=== PATIENT | female | born 1945 | race Caucasian/White ===

== ENCOUNTER 2018-08-12 15:58 | Observation (INO) | payer MEDICARE, OTHER, SELFPAY ==
[2018-08-12] VITALS (26 sets, daily range): BP systolic 127–160; BP diastolic 65–92; PULSE 66–84; RESP 7–23; TEMP 36.3–36.5; O2SAT 87–99
--- NOTE | 2018-08-12 16:22 | DI.CT_ITS ---
SYMPTOMS/DIAGNOSIS: EPIGASTRIC PAIN, BILATERAL BACK PAIN CT SCAN OF THE ABDOMEN AND PELVIS: CT scan of the abdomen and pelvis was performed following the uneventful administration of intravenous contrast material. Comparison CT scan of the chest is 03/25/08. No acute findings are seen in the lung bases. The liver is normal in size. There are several hypodense lesions in the liver. They are too small for further characterization but likely reflect cysts. No suspicious hepatic masses are seen. The portal and superior mesenteric veins are unremarkable. There are stones seen within the gallbladder. There does appear to be mild gallbladder wall thickening and a question of haziness in the pericholecystic region. No biliary ductal dilatation is seen. If there are concerns for acute cholecystitis, ultrasound may be considered for further evaluation. The pancreas is unremarkable, as are the spleen and adrenal glands. The kidneys show normal and symmetric enhancement. The right kidney shows no evidence of nephrolithiasis or hydronephrosis. In the left kidney, there are two adjacent cysts seen, the largest measuring 4.9 cm. There are parapelvic cysts also present. No nephrolithiasis or hydronephrosis is appreciated. The urinary bladder is intact. There does appear to be diffuse thickening of the wall of the urinary bladder. This may be due to underdistention. The possibility of an infectious process cannot be excluded. No intraluminal masses are present. The reproductive organs are visualized. There is a 2.8 cm complex right adnexal cyst, likely ovarian. Given the patient 's age, followup is recommended. This may include ultrasound. There is atherosclerosis of the abdominal aorta without evidence of abdominal aortic aneurysm. 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 No significant abdominal or pelvic adenopathy, ascites or pneumoperitoneum is present. There is diverticulosis seen in the colon, but no evidence of acute diverticulitis. There is a moderate amount of retained stool present. There is a normal air-filled appendix in the right lower quadrant. There is a question of mild wall thickening and loops of small bowel in the left abdomen. Enteritis cannot be excluded. There does appear to be a mild swirling of the mesenteric vessels in the lower abdomen and pelvis. The possibility of an internal hernia or volvulus cannot be excluded. Please correlate clinically. There are degenerative changes seen in the spine. No acute fractures appreciated. IMPRESSION: 1. Cholelithiasis within a distended gallbladder and questionable findings involving the wall and pericholecystic soft tissues. Acute cholecystitis cannot be excluded. Followup may be considered with an ultrasound. 2. Question of mild wall thickening and loops of small bowel in the left abdomen. A mild enteritis cannot be excluded. 3. Swirling pattern in the lower abdomen and pelvis. Differential considerations include internal hernia or possibly early volvulus. Please correlate clinically. 4. Complex cystic structure in the right ovary. Given the patient's age , clinical followup should be considered. Ultrasound or MRI should be considered.
--- NOTE | 2018-08-12 16:28 | ED.GENADUL_ITS ---
Discharge Plan Disposition Patient Disposition: [facility] INPATIENT Condition: Stable Discharge Details Chief Complaint: Abd Prob Clinical Impression: Abdominal pain Primary Care Provider: Sole Adkins ED Provider: Eduardo Guerrero Home Meds and New Rx's Prescriptions: No Action L CARNITINE 1,000 mg PO DAILY RF: 0 green tea leaf extract 250 MG capsule 250 mg PO DAILY RF: 0 multivitamin [Daily Multi-Vitamin] 1 EACH tablet 1 ea PO DAILY RF: 0 ascorbic acid (vitamin C) [Vitamin C] 1,000 MG tablet 1,000 mg PO DAILY RF: 0 venlafaxine [Effexor XR] 37.5 MG capsule,extended release 24hr 37.5 mg PO DAILY Qty: 90 RF: 3 risedronate [Actonel] 35 MG tablet 35 mg PO weekly Qty: 12 RF: 4 levothyroxine 50 MCG tablet 50 mcg PO DAILY Qty: 90 RF: 4 tetracycline 250 MG capsule 250 mg PO DAILY RF: 0 zinc gluconate 50 MG tablet 50 mg PO DAILY RF: 0 pycnogenol 30 mg PO DAILY RF: 0 lysine [L-Lysine] 500 MG capsule 500 mg PO DAILY RF: 0 aspirin [Aspir-81] 81 MG tablet,delayed release (DR/EC) 1 tab PO DAILY RF: 0 flaxseed oil 1,000 MG capsule 1 cap DAILY RF: 0 black cohosh [Remeprin] 20 MG tablet 20 mg PO HS RF: 0 diphenhydramine-acetaminophen [Tylenol PM Extra Strength] 1 EACH tablet 1 tab PO PRN PRNRF: 0 vitamin E 400 UNIT capsule 400 unit PO HS RF: 0 cholecalciferol (vitamin D3) 1,000 UNIT capsule 1,000 unit PO DAILY RF: 0 omega-3 fatty acids-fish oil [Fish Oil] 1 EACH capsule 2 cap DAILY RF: 0 calcium carbonate-vitamin D3 [Calcium 600 + D(3)] 1 EACH tablet 1 ea PO DAILY RF: 0 glucosamine brown 2KCl-chondroit [Glucosamine Sulf-Chondroitin] 1 EACH capsule 1 cap HS RF: 0 coenzyme Q10 [H2Q CoQ10] 75 GM powder 75 gm PO DAILY RF: 0 vit A and D3 in cod liver oil [cod liver oil] 1 EACH capsule 1 cap DAILY RF: 0 Medical Decision Making 72-year-old female presents from home with complaint of epigastric pain that radiates to her flank and also with associated dysuria. She is afebrile with normal vital signs, her exam reveals epigastric tenderness as well as right lower abdomen discomfort on exam. Patient differential diagnosis is broad including pancreatitis, ileus, urinary tract infection, gastritis, occult SD. She is placed on a cafeteria monitor, IV access established, referred for laboratory testing with urinalysis as well as chest x-ray and CT scan of the abdomen and pelvis. His diagnostic studies reveal a white blood cell count of 6, reassuring chemistries with a negative troponin and a lipase of 299. Imaging studies do note some gallbladder wall thickening and questionable pericholecystic fluid. There is note of swirling of the mesentery with haziness of the associated fat, concern for early or partial volvulus/internal hernia. Finally there is complex cystic structure of the right ovary. She will require deferred right upper quadrant ultrasound, but her labs do not support acute cholecystitis. I discussed the case with on-call surgery, Dr. Danielle who agrees with overnight observation for developing process such as small bowel obstruction. I have added a lactic acid which is normal at 0.6. Lab Data Lab results reviewed: Yes I reviewed the patient's lab results. Laboratory Tests Range/Units 08/12/18 08/12/18 15:50 15:50 WBC (4.4-10.8) k/cumm 6.50 RBC (4.00-5.20) m/cumm 4.57 Hgb (12.0-15.5) g/dL 14.7 Hct (36.0-46.0) % 43.4 MCV (80-95) fL 95.0 MCH (27.0-33.0) pg 32.2 MCHC (32.0-36.0) g/dL 33.9 RDW (11.7-14.6) % 12.8 Plt Count (130-400) x1000/uL 207 MPV (8.0-11.0) fL 10.9 Immature Gran % 0.2 Neutrophils % 67.3 Lymphocytes % 22.0 Monocytes % 9.1 Eosinophils % 1.2 Basophils % 0.2 Absolute Neutrophils (1.2-6.7) k/cumm 4.38 Absolute Lymphocytes (1.2-3.4) k/cumm 1.43 Absolute Monocytes (0.11-0.7) k/cumm 0.59 Absolute Eosinophils (0.0-0.7) k/cumm 0.08 Absolute Basophils (0.0-0.2) k/cumm 0.01 Sodium (136-145) mmol/L 138 Potassium (3.5-5.1) mmol/L 3.6 Chloride (98-107) mmol/L 100 Carbon Dioxide (21.0-32.0) mmol/L 27.2 Anion Gap (3-11) mmol/L 10.8 BUN (7-18) mg/dL 21 H Creatinine (0.55-1.02) mg/dL 0.61 Estimated GFR/1.73 m2 (mL/min/1.73m2) >= 60.00 Glucose (70-100) mg/dL 94 Calcium (8.5-10.1) mg/dL 9.0 Magnesium (1.8-2.4) mg/dL 1.7 L Total Bilirubin (0.2-1.0) mg/dL 0.4 AST (15-37) U/L 22 ALT (12-78) U/L 35 Alkaline Phosphatase (46-116) U/L 78 Troponin I (0.00-0.06) ng/mL < 0.02 Total Protein (6.4-8.2) g/dL 6.8 Albumin (3.4-5.0) g/dL 3.6 Lipase (73-393) U/L 299 ECG Data Attestation: I personally reviewed and interpreted this ECG (s) as follows: Interpretation: Normal sinus rhythm, rate of 78, QRS is narrow, no ST segment elevation present HPI General Mode of arrival: ambulatory . Date/Time Provider Initiated Documentation: 08/12/18 16:02 . Limitations to Documentation: no limitations . Information obtained by: patient . History of Present Illness 72 year old F presents to the emergency department with the chief complaint of Abdominal pain and multiple complaints, described as moderate, Quality is described as aching, and is localized to the abdomen. Patient flank. Patient started experiencing this day(s) and it has been intermittent. No relieving factors improve symptom(s), No exacerbating factors reported . HPI Narrative: This is a 72-year-old female who presents from home with a number of complaints. Chief of them is at least one weeks of epigastric achy and burning discomfort that radiates at times to her back. It does seem to come and go without significant inciting or ameliorating factors. It is been associated with increased urgency of urination and frequency of urination over the course of the day today. Patient denies any exertional discomfort. She has not had any shortness of breath. She states that she had night sweats but has not documented a fever. She states that she is concerned that a dental infection which occurred early in the year may have recurred. Related Data Home Medications Medication Instructions Recorded Confirmed aspirin [Aspir 81] 1 tab PO DAILY 12/16/12 12/03/15 black cohosh [Remeprin] 20 mg PO HS 12/16/12 12/03/15 calcium carbonate-vitamin D3 1 ea PO DAILY 12/16/12 12/03/15 [Calcium 600 + Vit D 400 Caplet] cholecalciferol (vitamin D3) 1,000 unit PO DAILY 12/16/12 12/03/15 coenzyme Q10 [H2q Coq10] 75 gm PO DAILY 12/16/12 12/03/15 diphenhydramine-acetaminophen 1 tab PO PRN PRN 12/16/12 12/02/15 [Tylenol Pm Ex-Strength Caplet] flaxseed oil 1 cap DAILY 12/16/12 12/03/15 glucosamine brown 2KCl-chondroit 1 cap HS 12/16/12 12/03/15 [Glucosamine & Chondroitin Cap] lysine [l-Lysine] 500 mg PO DAILY 12/16/12 12/03/15 omega-3 fatty acids-fish oil [Fish 2 cap DAILY 12/16/12 12/03/15 Oil 1,000 mg Capsule] vit A and D3 in cod liver oil [Cod 1 cap DAILY 12/16/12 12/03/15 Liver Oil Softgel] vitamin E 400 unit PO HS 12/16/12 12/03/15 L Carnitine 1,000 mg PO DAILY 01/30/15 12/03/15 green tea leaf extract 250 mg PO DAILY 05/11/16 ascorbic acid (vitamin C) [Vitamin 1,000 mg PO DAILY 10/04/17 C] multivitamin [Multi-Vitamin Daily] 1 ea PO DAILY 10/04/17 venlafaxine [Effexor Xr] 37.5 mg PO DAILY #90 tab-cap 10/04/17 levothyroxine 50 mcg PO DAILY #90 tab-cap 11/07/17 risedronate [Actonel] 35 mg PO weekly #12 tab-cap 11/07/17 Pycnogenol 30 mg PO DAILY 11/24/17 tetracycline 250 mg PO DAILY cap 11/24/17 zinc gluconate 50 mg PO DAILY 11/24/17 Previous Rx's Medication Instructions Recorded venlafaxine [Effexor Xr] 37.5 mg PO DAILY #90 tab-cap 10/04/17 levothyroxine 50 mcg PO DAILY #90 tab-cap 11/07/17 risedronate [Actonel] 35 mg PO weekly #12 tab-cap 11/07/17 Allergies Allergy/AdvReac Type Severity Reaction Status Date / Time doxycycline AdvReac Intermediate UPSET Unverified 08/12/18 16:14 STOMACH PROCAINE AdvReac Intermediate TACHYCARDIA Uncoded 08/12/18 16:14 General Stated Complaint: Abd Prob YOBANY: 3 Review of Systems Review of Systems 8 systems reviewed and otherwise neg. PFSH Family History Mother Depression Heart disease Father Essential hypertension Heart disease Hyperlipidemia Sister Essential hypertension Heart disease Sister Substance abuse Depression Brother Essential hypertension Heart disease Grandfather Cerebrovascular accident Grandfather Heart disease Cerebrovascular accident Grandmother Depression Heart disease Cerebrovascular accident Grandmother Heart disease Family History Messer's palsy Skin cancer Osteoporosis Arthritis Kidney stones Kidney disease Thyroid disorder Daughter Substance abuse Diabetes Depression Daughter Substance abuse Diabetes Depression Social History Smoking/Tobacco Use Status: Former Tobacco Use Surgical History Biopsy of breast (~1991) OOPHRECTOMY, U/L REPAIR LEFT PATELLA FRACTURE (12/03/15) Exam Narrative Exam Narrative: GEN: awake, alert, oriented 3. Pleasant, well groomed, interactive. HEAD: Normocephalic, atraumatic ENT: Mucous membranes moist, oropharynx unremarkable, External ear exam unremarkable EYES: PERRL, EOMI NECK: Full ROM, no FISH, no menigismus CHEST/RESP: Nontender, clear to auscultation bilateral, no wheeze/rhonchi/rales CARDIOVASCULAR: RRR, no murmur, rub david. 2+ Rad pulse bilateral ABDOMEN: Tender in the epigastrium as well as RLQ on exam without rebound, no mass. +Bowel sounds EXT: Full ROM, no edema, no rash Neuro: Grossly normal neurologic exam, conversant, interactive. Psych: Speech fluent, thoughts congruent, affect normal Course Vital Signs Temperature 36.3 C L 08/12/18 16:06 Pulse 77 08/12/18 16:06 Respiratory Rate 18 08/12/18 16:06 Blood Pressure 136/87 08/12/18 16:06 Pulse Oximetry 97 08/12/18 16:06 Temperature 36.3 C L 08/12/18 16:06 Pulse 77 08/12/18 16:06 Respiratory Rate 18 08/12/18 16:06 Respiratory Effort 08/12/18 16:10 Blood Pressure 136/87 08/12/18 16:06 Pulse Oximetry 97 08/12/18 16:06 Oxygen Delivery Method Room Air 08/12/18 16:06 Oxygen Flow Rate 0 08/12/18 16:06 Pain Level 5 08/12/18 16:06
[2018-08-12] MEDS: Normal Saline 1,000 ML 125 ML IV ×2 (16:32→21:41)
[2018-08-12 16:41] LABS: Abs Immature Grans 0.01 k/cumm (0.0-0.09); Absolute Basophil Count 0.01 k/cumm (0.0-0.2); Absolute Eosinophil Count 0.08 k/cumm (0.0-0.7); Absolute Lymphocyte Count 1.43 k/cumm (1.2-3.4); Absolute Monocyte Count 0.59 k/cumm (0.11-0.7); Absolute Neutrophil Count 4.38 k/cumm (1.2-6.7); Basophils % 0.2; Eosinophils % 1.2; HCT 43.4 % (36.0-46.0); HGB 14.7 g/dL (12.0-15.5); Immature Grans % 0.2; Mean Corp. HGB Concentration 33.9 g/dL (32.0-36.0); Mean Corpuscular Hemoglobin 32.2 pg (27.0-33.0); Mean Platelet Volume 10.9 fL (8.0-11.0); Monocytes % 9.1; Neutrophils % 67.3; Platelet Count 207 x1000/uL (130-400); RBC 4.57 m/cumm (4.00-5.20); RBC Distribution Width 12.8 % (11.7-14.6)
[2018-08-12 16:48] LABS: ALT 35 U/L (12-78); AST 22 U/L (15-37); Albumin 3.6 g/dL (3.4-5.0); Alkaline Phosphatase 78 U/L (46-116); Anion Gap 10.8 mmol/L (3-11); BUN 21 mg/dL (7-18); Bilirubin, Total 0.4 mg/dL (0.2-1.0); CO2 27.2 mmol/L (21.0-32.0); CREATININE 0.61 mg/dL (0.55-1.02); Chloride 100 mmol/L (98-107); Glucose 94 mg/dL (70-100); Lipase 299 U/L (73-393); Magnesium 1.7 mg/dL (1.8-2.4); Potassium 3.6 mmol/L (3.5-5.1); Sodium 138 mmol/L (136-145); Total Protein 6.8 g/dL (6.4-8.2)
[2018-08-12 16:50] LABS: Troponin I < 0.02 ng/mL (0.00-0.06)
--- NOTE | 2018-08-12 16:53 | DI.RAD_ITS ---
SYMPTOMS/DIAGNOSIS: EPIGASTRIC PAIN CHEST X-RAY, PA AND LATERAL: Comparison is 11/14/10. The heart size and pulmonary vasculature are within normal limits. The lungs are clear and well expanded. No effusions or pneumothoraces are identified. The lungs appear hyperinflated, suggesting underlying COPD. Degenerative changes are seen in the spine. There is a mild compression deformity at T8, not present on the prior examination. IMPRESSION: No acute pulmonary process.
[2018-08-12] MEDS: Omnipaque 350 MG/ML 100 ML BTL IJ (17:20)
--- NOTE | 2018-08-12 17:24 | DI.VRAD_ITS ---
EXAM: XR Chest, 2 Views EXAM DATE/TIME: 08/12/2018 5:17 PM CLINICAL HISTORY: 72 years old, female; Pain; Other: Epigastric pain TECHNIQUE: XR of the chest, 2 views. COMPARISON: No relevant prior studies available. FINDINGS: Lungs: AP portion of the pulmonary parenchyma is obscured secondary to an overlying snap. No consolidation. Pleural space: Unremarkable. No pleural effusion. No pneumothorax. Heart/Mediastinum: Unremarkable. No cardiomegaly. Bones/joints: Skeletal degenerative changes.. IMPRESSION: 1. No focal consolidation or pneumothorax. Dictated and Authenticated by: Clarice Wilkins MD. Ordering:GIANFRANCO FINK MD
--- NOTE | 2018-08-12 17:52 | DI.VRAD_ITS ---
EXAM: CT Abdomen and Pelvis With Intravenous Contrast EXAM DATE/TIME: 08/12/2018 4:25 PM CLINICAL HISTORY: 72 years old, female; Pain; Other: Epigastric pain TECHNIQUE: Axial computed tomography images of the abdomen and pelvis with intravenous contrast. Coronal and sagittal reformatted images were created and reviewed. COMPARISON: No relevant prior studies available. FINDINGS: Lower thorax: Linear atelectasis or scarring at the lung bases. ABDOMEN: Liver: Too small to characterize hypodensity in the liver. 1.4 cm cystic structure in the posterior right hepatic lobe. Series 5 image 9 demonstrates a hypodensity in the medial liver which measures 26 Hounsfield units and therefore does not fulfill the criteria for a simple cyst. Ultrasound or MRI hepatic mass protocol, could be considered. Gallbladder and bile ducts: The gallbladder is prominent in appearance measuring 7.8 cm. It demonstrates gallstones. There appears to be gallbladder wall thickening and some questionable pericholecystic fluid. Findings are worrisome for cholecystitis. Ultrasound could be considered. Pancreas: Normal. No ductal dilation. Spleen: Normal. No splenomegaly. Adrenals: Normal. No mass. Kidneys and ureters: Mild prominence to each intrarenal collecting system. There are cystic structures in the left kidney, the largest of which appears to be septated, 4.2 cm. Followup could be considered. Stomach and bowel: The stomach is fluid-filled. There are areas of wall prominence involving the stomach and duodenum which should be correlated with any concern for gastritis/duodenitis. There are also fluid-filled loops of small bowel. The small bowel of the left hemiabdomen also demonstrates some mild dilation (up to 2.7 cm (series 5 image 42) and wall prominence. There is a mild swirling of the mesentery in the lower abdomen on series 5 image 46 with some haziness to the associated fat. This should be correlated with any concern for early volvulus or internal hernia. Stool throughout the colon which can be seen with constipation. Diverticulosis. There is some wall prominence to the sigmoid colon on series 5 image 55 which may be related to under distention or chronic thickening in the setting of diverticular disease. However, finding should be correlated with any concern for early acute diverticulitis. Appendix: Normal appendix. PELVIS: Bladder: Some wall prominence to the anterior aspect of the urinary bladder. This can be seen with infection or pathology. Reproductive: The uterus is present. There is a 2.7 cm cystic structure in the right ovary which demonstrates a 4 mm calcification. Given the patient's age, cystic ovarian neoplasm is not excluded. Ultrasound would be beneficial. ABDOMEN and PELVIS: Intraperitoneal space: No free air. No free fluid. Bones/joints: Skeletal degenerative changes. Soft tissues: Tiny fat-containing anterior abdominal wall hernia. Vasculature: Vascular calcifications. Series 5 image 17 demonstrates a calcified aneurysm in the left upper quadrant of the abdomen. This may be originating from the splenic artery. Lymph nodes: Normal. No enlarged lymph nodes. IMPRESSION: 1. Constellation of findings discussed above is worrisome for acute cholecystitis. Ultrasound could be considered. 2. Findings in the stomach, duodenum, and small bowel which should be correlated with concern for gastroenteritis. In addition, there is mild dilation of the loops of small bowel in the left hemiabdomen for which an early or partial obstructive process is not excluded. 3. Mild swirling of the mesentery in the lower abdomen with some haziness to the associated fat. This should be correlated with any concern for early/partial volvulus or internal hernia. 4. Wall prominence to the anterior aspect of the urinary bladder. This can be seen with infection or pathology. 5. Complex cystic structure in the right ovary. Given the patient's age, cystic ovarian neoplasm is not excluded. Ultrasound would be beneficial. 6. Hypodensity in the liver which does not fulfill the criteria for a simple cyst. 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 Some wall prominence to the sigmoid colon which can be seen chronically or in the setting of early acute diverticulitis. Other findings as above. Dictated and Authenticated by: Clarice Wilkins MD. Ordering:GIANFRANCO FINK MD
[2018-08-12 18:32] LABS: Lactate-non-spesis 0.6 mmol/L (0.6-1.4)
[2018-08-12 19:04] LABS: Bilirubin Negative (Negative); Blood Trace-lysed (Negative); Clarity Clear; Glucose Negative (Negative); Ketones Negative (Negative); Leukocyte Esterase Negative (Negative); Nitrite Negative (Negative); Specific Gravity <= 1.005 (1.005-1.025); Urobilinogen 0.2 EU/dL (Up TO 0.2); pH 5.5 (5-8)
[2018-08-12 19:34] LABS: Bacteria Negative HPF (Negative); C & S Indicated? No; Casts Negative LPF (Negative); Crystals Negative HPF (Negative); Epithelial Cells Rare HPF (Negative); Mucus Negative (Negative); Other Cells Negative (Negative); RBC 0-2 (0-2); WBC Negative HPF (0-5)
--- NOTE | 2018-08-12 20:37 | W.PM.HP.N ---
Date of service: 08/12/18 Time of Service: 20:37 Assessment and Plan (1) Abdominal pain: Current visit: Yes Status: Acute 72 y/o female with abdominal pain of uncertain etiology. Pain is migratory and variably located by history. She is mildly tender diffusely. Multiple potential etiologies described on CT including gallstones, possible gastroenteritis, possible diverticulitis, possible splenic artery aneurysm, and multiple cystic findings in the liver, left kidney and right ovary. Follow-up imaging with abdominal and pelvic ultrasound ordered. Follow-up labs in am. Bowel rest and IVF overnight. Pain management with Tordaol prn. Discussed plans with patient. She is agreeable. History of Present Illness Chief Complaint: Abdominal pain Narrative: 72 y/o female who presented to the ED with a 4 day history of abdominal pain. Patient notes that she has had milder intermittent episodes over the past several months but her symptoms became more severe over the last 4 days. She notes intermittent pain which feels like a gas bubble in the epigastrium with radiation across the upper abdomen around to the back. She also notes some pain in the lower abdomen. She notes some hot flashes at home but denies fevers or chills. She notes urgency and frequency but denies dysuria or hematuria. She notes occasional nausea in the mornings which she attributes to her thyroid medication and effexor. She denies any nausea or vomiting at this time. She denies diarrhea or constipation. Her last BM was small, brown, and regular appearing this am. She had recurrence of pain during our conversation and indicates that it is in the LLQ with radiation up to the LUQ. WBC, LFTs, lipase, lactate, and U/A unremarkable. Results reviewed. CXR was unremarkable. CT abd/pelvis films and VRADS report reviewed. Multiple findings noted on CT including a prominent, possibly thickened gallbladder with stones and possible pericholecystic fluid, hepatic cyst, left renal cyst, possible gastroenteritis and early diverticulitis, mild small bowel dilation, mild swirling of the mesentery in the lower abdomen with some haziness of the fat, wall prominence of the anterior urinary bladder wall, complex cyst of the right ovary, and a possible calcified splenic artery aneurysm. Incidentally, patient notes that she had a crown placed in October 2017. Her tooth was cracked and became infected underneath the crown with infection spreading into the jaw. She notes that her jaw was debrided and repaired with cadaver tissue. Review of Systems Review of Systems All systems reviewed & are unremarkable except as noted in HPI and below Constitutional Denies chills, Denies fever(s) and Reports other (hot flashes) Gastrointestinal Reports abdominal pain, Denies change in bowel habits, Denies constipation, Denies diarrhea, Reports nausea and Denies vomiting Genitourinary Denies hematuria, Reports urinary frequency, Denies dysuria and Reports urinary urgency PFSH Family History Mother Depression Heart disease Father Essential hypertension Heart disease Hyperlipidemia Sister Essential hypertension Heart disease Sister Substance abuse Depression Brother Essential hypertension Heart disease Grandfather Cerebrovascular accident Grandfather Heart disease Cerebrovascular accident Grandmother Depression Heart disease Cerebrovascular accident Grandmother Heart disease Family History Messer's palsy Skin cancer Osteoporosis Arthritis Kidney stones Kidney disease Thyroid disorder Daughter Substance abuse Diabetes Depression Daughter Substance abuse Diabetes Depression Social History Smoking/Tobacco Use Status: Former Tobacco Use Surgical History Biopsy of breast (~1991) OOPHRECTOMY, U/L REPAIR LEFT PATELLA FRACTURE (12/03/15) Meds Home Medications Medication Instructions Recorded Confirmed Type aspirin [Aspir 81] 1 tab PO DAILY 12/16/12 12/03/15 History black cohosh [Remeprin] 20 mg PO HS 12/16/12 12/03/15 History calcium carbonate-vitamin D3 1 ea PO DAILY 12/16/12 12/03/15 History [Calcium 600 + Vit D 400 Caplet] cholecalciferol (vitamin D3) 1,000 unit PO DAILY 12/16/12 12/03/15 History coenzyme Q10 [H2q Coq10] 75 gm PO DAILY 12/16/12 12/03/15 History diphenhydramine-acetaminophen 1 tab PO PRN PRN 12/16/12 12/02/15 History [Tylenol Pm Ex-Strength Caplet] flaxseed oil 1 cap DAILY 12/16/12 12/03/15 History glucosamine brown 2KCl-chondroit 1 cap HS 12/16/12 12/03/15 History [Glucosamine & Chondroitin Cap] lysine [l-Lysine] 500 mg PO DAILY 12/16/12 12/03/15 History omega-3 fatty acids-fish oil [Fish 2 cap DAILY 12/16/12 12/03/15 History Oil 1,000 mg Capsule] vit A and D3 in cod liver oil [Cod 1 cap DAILY 12/16/12 12/03/15 History Liver Oil Softgel] vitamin E 400 unit PO HS 12/16/12 12/03/15 History L Carnitine 1,000 mg PO DAILY 01/30/15 12/03/15 History green tea leaf extract 250 mg PO DAILY 05/11/16 History ascorbic acid (vitamin C) [Vitamin 1,000 mg PO DAILY 10/04/17 History C] multivitamin [Multi-Vitamin Daily] 1 ea PO DAILY 10/04/17 History venlafaxine [Effexor Xr] 37.5 mg PO DAILY #90 tab-cap 10/04/17 Rx levothyroxine 50 mcg PO DAILY #90 tab-cap 11/07/17 Rx risedronate [Actonel] 35 mg PO weekly #12 tab-cap 11/07/17 Rx Pycnogenol 30 mg PO DAILY 11/24/17 History tetracycline 250 mg PO DAILY cap 11/24/17 History zinc gluconate 50 mg PO DAILY 11/24/17 History Allergies Allergy/AdvReac Type Severity Reaction Status Date / Time doxycycline AdvReac Intermediate UPSET Unverified 08/12/18 16:14 STOMACH PROCAINE AdvReac Intermediate TACHYCARDIA Uncoded 08/12/18 16:14 Exam Const General: cooperative and comfortable Nutritional Appearance: average body habitus and well nourished Orientation: alert and oriented x3 HENMT Head: normocephalic and atraumatic Neck Neck: trachea midline and supple Resp Effort & Inspection: normal respiratory effort and able to speak in complete sentences Cardio Jugular venous pressure: no JVD Rate: regular rate Rhythm: regular rhythm GI Inspection: non-distended Palpation: soft, hepatosplenomegaly present, no masses and tender (mildly tender diffusely) Skin General skin exam: no rashes or lesions noted and no jaundice Neuro General: alert, oriented x3 and moves all extremities Gait: normal gait Results Labs : 08/12/18 15:50 08/12/18 15:50 Laboratory Results - last 24 hr 08/12/18 08/12/18 08/12/18 15:50 15:50 18:25 WBC 6.50 RBC 4.57 Hgb 14.7 Hct 43.4 MCV 95.0 MCH 32.2 MCHC 33.9 RDW 12.8 Plt Count 207 MPV 10.9 Immature Gran % 0.2 Neutrophils % 67.3 Lymphocytes % 22.0 Monocytes % 9.1 Eosinophils % 1.2 Basophils % 0.2 Absolute Neutrophils 4.38 Absolute Lymphocytes 1.43 Absolute Monocytes 0.59 Absolute Eosinophils 0.08 Absolute Basophils 0.01 Sodium 138 Potassium 3.6 Chloride 100 Carbon Dioxide 27.2 Anion Gap 10.8 BUN 21 H Creatinine 0.61 Estimated GFR/1.73 m2 >= 60.00 Glucose 94 Lactate 0.6 Calcium 9.0 Magnesium 1.7 L Total Bilirubin 0.4 AST 22 ALT 35 Alkaline Phosphatase 78 Troponin I < 0.02 Total Protein 6.8 Albumin 3.6 Lipase 299 Urine Color Urine Clarity Urine pH Ur Specific [place] Urine Protein Urine Ketones Urine Blood Urine Nitrite Urine Bilirubin Urine Urobilinogen Ur Leukocyte Esterase Urine RBC Urine WBC Ur Epithelial Cells Urine Crystals Urine Bacteria Urine Casts Urine Mucus Urine Other Ur Culture Indicated? Urine Glucose 08/12/18 18:58 WBC RBC Hgb Hct MCV MCH MCHC RDW Plt Count MPV Immature Gran % Neutrophils % Lymphocytes % Monocytes % Eosinophils % Basophils % Absolute Neutrophils Absolute Lymphocytes Absolute Monocytes Absolute Eosinophils Absolute Basophils Sodium Potassium Chloride Carbon Dioxide Anion Gap BUN Creatinine Estimated GFR/1.73 m2 Glucose Lactate Calcium Magnesium Total Bilirubin AST ALT Alkaline Phosphatase Troponin I Total Protein Albumin Lipase Urine Color Yellow Urine Clarity Clear Urine pH 5.5 Ur Specific [place] <= 1.005 Urine Protein Negative Urine Ketones Negative Urine Blood Trace-lysed H Urine Nitrite Negative Urine Bilirubin Negative Urine Urobilinogen 0.2 Ur Leukocyte Esterase Negative Urine RBC 0-2 Urine WBC Negative Ur Epithelial Cells Rare Urine Crystals Negative Urine Bacteria Negative Urine Casts Negative Urine Mucus Negative Urine Other Negative Ur Culture Indicated? No Urine Glucose Negative Last Vital Signs Temp 36.5 C 08/12/18 20:10 Pulse 66 08/12/18 20:11 Resp 16 08/12/18 20:10 BP 160/85 H 08/12/18 20:11 Pulse Ox 99 08/12/18 20:10
[2018-08-12] MEDS: Pantoprazole 40 MG VIAL IVP (21:52)
[2018-08-12] MEDS: Ketorolac 15 MG/ML VIAL IVP (22:40)
[2018-08-13] VITALS (21 sets, daily range): BP systolic 132–153; BP diastolic 48–82; PULSE 57–92; RESP 18; TEMP 35.7–36.3; O2SAT 94–99
[2018-08-13] MEDS: Normal Saline 1,000 ML 125 ML IV ×3 (05:56→23:08)
--- NOTE | 2018-08-13 07:00 | DI.RAD_ITS ---
SYMPTOM/DIAGNOSIS: ABD PAIN FLAT AND UPRIGHT ABDOMEN: Comparison CT scan is 08/12/18. The visualized lung bases are clear. No organomegaly or pneumoperitoneum is seen. There is a peripherally calcified lesion in the left upper lobe consistent with a splenic artery aneurysm seen on the CT scan. There is a large amount of stool seen predominantly in the ascending, transverse and descending colon consistent with constipation. No evidence of bowel obstruction is seen. Degenerative changes are seen in the spine and the hips bilaterally. IMPRESSION: 1. Findings of constipation. 2. Calcification in the left upper quadrant consistent with the patient's known splenic artery aneurysm.
[2018-08-13 07:43] LABS: Absolute Basophil Count 0.01 k/cumm (0.0-0.2); Absolute Eosinophil Count 0.08 k/cumm (0.0-0.7); Absolute Lymphocyte Count 1.07 k/cumm (1.2-3.4); Absolute Monocyte Count 0.39 k/cumm (0.11-0.7); Absolute Neutrophil Count 2.55 k/cumm (1.2-6.7); Basophils % 0.2; HCT 39.3 % (36.0-46.0); Lymphocytes % 26.1; Mean Corp. HGB Concentration 33.1 g/dL (32.0-36.0); Mean Corpuscular Hemoglobin 32.1 pg (27.0-33.0); Mean Platelet Volume 10.7 fL (8.0-11.0); Monocytes % 9.5; Neutrophils % 62.2; Platelet Count 152 x1000/uL (130-400); RBC 4.05 m/cumm (4.00-5.20); RBC Distribution Width 12.7 % (11.7-14.6)
[2018-08-13 07:49] LABS: Anion Gap 7.6 mmol/L (3-11); BUN 14 mg/dL (7-18); CO2 27.4 mmol/L (21.0-32.0); CREATININE 0.59 mg/dL (0.55-1.02); Chloride 107 mmol/L (98-107); Glucose 78 mg/dL (70-100); Potassium 3.7 mmol/L (3.5-5.1); Sodium 142 mmol/L (136-145)
[2018-08-13] MEDS: Pantoprazole 40 MG VIAL IVP (09:43)
--- NOTE | 2018-08-13 12:40 | DI.US_ITS ---
SYMPTOM/DIAGNOSIS: LIVER CYSTS, S/P LT OOPHORECTOMY, ABD PAIN, ? OBSTRUCTION ABDOMEN ULTRASOUND: Routine examination. Comparison is made with CT scan of 08/12/18. The aorta and IVC are unremarkable. The liver is normal in size. There are two simple cysts seen in the right lobe of the liver. There is a small echogenic area seen in the right lobe of the liver laterally. This may represent calcification or fat. The possibility of a small benign hemangioma cannot be excluded. There are stones seen within the gallbladder. No gallbladder wall thickening or pericholecystic fluid is seen. The gallbladder wall measures .2 cm. in thickness. No sludge is seen. The common duct is within normal limits for the patient's age at .6 cm. The tail of the pancreas was not visualized but the remainder of the pancreas is unremarkable as was the spleen. The splenic artery appears patent. The kidneys are grossly unremarkable. Incidental note is made of cysts within the left kidney, the largest measuring 4.5 cm. No hydronephrosis is seen. The portal vein is patent. IMPRESSION: Cholelithiasis. No sonographic evidence to suggest acute cholecystitis. PELVIC ULTRASOUND: Transabdominal and transvaginal examination was performed. The uterus is retroflexed. It measures 4.2 cm. long by 2.4 cm. AP by 4.6 cm. transverse. The endometrial stripe is within normal limits at .3 cm. There is a small amount of fluid in the endometrial canal. There is a small, 0.3 cm. cyst in the posterior aspect of the endometrium. The patient is status post left oophorectomy. No left adnexal masses are seen. The right ovary measures 2.6 by 3.7 cm. There are two follicular cysts seen on the right ovary, the largest measures 2.4 by 2.5 by 2.7 cm. There is a small calcification along the posterior wall of this cyst. No internal blood flow is seen. The smaller cyst measures 1.2 by 0.9 cm. No free pelvic fluid or hydronephrosis is identified. IMPRESSION: 2.7 cm. cyst on the right ovary. There is a small, 0.7 cm. calcification along the posterior wall of this right cyst. Given the patient's age, follow up is recommended. Neoplasm cannot be excluded. Status post left oophorectomy. 0.3 cm. cyst in the posterior endometrium. If clinically indicated, follow up is recommended.
--- NOTE | 2018-08-13 14:27 | PDOC.CMIN ---
- If Service Date Differs Date of service: 08/13/18 Time of Service: 14:27 Care Management Initial Assess REASON FOR HOSPITALIZATION:: Abdominal pain PAST MEDICAL HISTORY/PAST SURGICAL HISTORY:: Acne, Actinic keratosis, Basal cell carcinoma of skin, Generalized osteoarthritis, H/O tobacco use, Hypothyroidism, GERD, Osteoporosis, Polyp of colon. Biopsy of breast (~1991). OOPHRECTOMY, U/L. REPAIR LEFT PATELLA FRACTURE (12/03/15) PREVIOUS FUNCTIONAL STATUS/SOCIAL/FAMILY SUPPORTS:: Yvonne resides with her Anam in [place]. She has two children whom are supportive. Yvonne is independent at baseline, drives, and manages ADL's CURRENT FUNCTIONAL STATUS:: Yvonne is lying in bed this afternoon, pleasant and open to discussion. ADVANCE DIRECTIVES:: On file - Anam is agent. Has patient been provided with information about the portal?: Yes Did the patient sign up for the portal?: No CODE STATUS:: Full Code INSURANCE COVERAGE / FINANCIAL ISSUES:: medicare, [employer] for life CURRENT HOME/COMMUNITY SERVICES/EQUIPMENT:: Has a walker and crutches at home. No services at this time. PRIMARY CARE PHYSICIAN:: Sole Adkins POTENTIAL DISCHARGE NEEDS:: F/U appointment with Dr. Danielle PATIENT/FAMILY EDUCATION NEEDS:: Review DC instructions, any limitations, and ongoing DC planning discussion. Discuss 'Ask Me Three' ANTICIPATED BARRIERS TO DISCHARGE:: None identified at this time. TRANSPORTATION:: Via private vehicle with family PLAN:: Yvonne will return home with no anticipated services once medically cleared. she will f/u with PCP and plan of care as prescribed. Yvonne's family to transport when ready.
--- NOTE | 2018-08-13 14:28 | DI.VRAD_ITS ---
EXAM: XR Abdomen, 2 Views EXAM DATE/TIME: 08/13/2018 12:00 AM CLINICAL HISTORY: 72 years old, female; Pain; Abdominal pain; Generalized TECHNIQUE: Frontal view of the abdomen/pelvis with upright view of the abdomen. COMPARISON: US abdomen pelvis 08/13/2018 12:50 PM FINDINGS: Gastrointestinal tract: Findings consistent with constipation in the right colon, transverse colon, and descending colon. Intraperitoneal space: Normal. No free air. Vasculature: 2.2 cm calcified mass in the left upper quadrant may represent a calcified node or splenic artery aneurysm Bones/joints: Degenerative changes in the glenohumeral joints IMPRESSION: Findings consistent with constipation in the right colon, transverse colon, and descending colon. Dictated and Authenticated by: Kenny Saravia MD. Ordering:SUSAN SANCHEZ MD
--- NOTE | 2018-08-13 14:43 | DI.VRAD_ITS ---
EXAM: US Abdomen Complete EXAM DATE/TIME: 08/13/2018 1:49 PM CLINICAL HISTORY: 72 years old, female; Abnormal findings; Abnormal radiologic finding of the abdomen; Radiologic exam and body structure: Abd pelv CT; Prior surgery; Surgery date: 6+ months; Surgery type: Lt oophorectomy years ago; Patient HX: General abdominal pain TECHNIQUE: Real-time ultrasound of the abdomen with image documentation. COMPARISON: CT ABDOMEN PELVIS W 08/12/2018 4:49 PM FINDINGS: Liver: Small cysts in the liver less than 1 cm. 10 mm echogenic area lateral right lobe of the liver may represent calcification or fat . Gallbladder: Cholelithiasis Gallbladder wall 1.8 mm Common bile duct: Common bile duct 6.1 mm Pancreas: Pancreas is unremarkable Right kidney: Right kidney 12 cm. No hydronephrosis Left kidney: Multiple cysts in the left kidney 4.5 cm, 2.1 cm and 1.4 cm Left kidney 11.9 cm . No hydronephrosis Spleen: Splenic artery is patent Spleen 8.4 cm Aorta: Proximal aorta 2.5 cm. Mid aorta 2.8 cm Distal aorta 2.5 cm Inferior vena cava: Inferior vena cava a 2.4 cm Portal venous: Portal vein is patent IMPRESSION: Cholelithiasis. Normal gallbladder wall. Common bile duct normal for age Dictated and Authenticated by: Kenny Saravia MD. Ordering:SUSAN SANCHEZ MD
[2018-08-13] MEDS: Normal Saline Flush 10 ML SYR IVP (15:18)
--- NOTE | 2018-08-13 15:24 | NUR.NOTE ---
08/13/18 Pt transferred from ICU room 220 to ms room 207 after DI. Pt alert and oriented x 3. hr reg, lsc, positive bs x 4. abd tender to palpation, soft. pt denies chest pain/ SOB. iv in r fa flushes well, no issues. pt reports has rosacea at baseline. Pt denies nausea. no BM since admission, no issues voiding. has 3 gold colored rings on. and cell phone/ purse at bedside. brought in own pillows.
--- NOTE | 2018-08-13 15:50 | PGE_ITS ---
Assessment and Plan (1) Abdominal pain: Current visit: Yes Status: Acute 72 y/o female with abdominal pain of uncertain etiology. Pain is migratory and variably located by history. She is mildly tender diffusely. Multiple potential etiologies described on CT including gallstones, possible gastroenteritis, possible diverticulitis, possible splenic artery aneurysm, and multiple cystic findings in the liver, left kidney and right ovary. Follow-up imaging with abdominal and pelvic ultrasound show cholelithiasis without cholecystitis, hepatic and renal cysts. Splenic artery is patent. Pelvic ultrasound report pending. AXR indicate constipation - likely source of acute symptoms. Will start patient on clears and add Miralax bid. Advance diet in am if tolerating. Subjective Patient reports: feels better Interval history since last seen: Patient is seen with daughter at the bedside. She denies any nausea or vomiting. Abdominal pain is still minimally present but much improved. (+) flatus. Hungry. AXR shows signs of constipation. Calcification in LUQ described as node vs. splenic artery aneurysm. Abdominal ultrasound shows cholelithiasis without cholecystitis. Splenic artery is patent on ultrasound. Pelvic ultrasound also done. Report pending. Patient notes that she has had a colonoscopy before but she is probably due for another. Patient requests flu and pneumonia vaccines on this admission. Exam Const General: cooperative, comfortable and no acute distress Nutritional Appearance: average body habitus Orientation: alert and oriented x3 HENMT Head: normocephalic and atraumatic Resp Effort & Inspection: normal respiratory effort and able to speak in complete sentences Cardio Jugular venous pressure: no JVD GI Inspection: non-distended Palpation: soft, not firm, no guarding, no masses and tender (minimally tender in epigastrium and LLQ) in the epigastrum and in the LLQ Skin General skin exam: no rashes or lesions noted and no jaundice Objective Objective Clinical Data: Abnormal lab results 08/12/18 08/12/18 08/13/18 Range/Units 15:50 18:58 06:37 WBC (4.4-10.8) k/cumm MCV (80-95) fL Absolute Lymphocytes (1.2-3.4) k/cumm BUN 21 H (7-18) mg/dL Calcium 8.0 L (8.5-10.1) mg/dL Magnesium 1.7 L (1.8-2.4) mg/dL Urine Blood Trace-lysed H (Negative) 08/13/18 Range/Units 06:37 WBC 4.10 L D (4.4-10.8) k/cumm MCV 97.0 H (80-95) fL Absolute Lymphocytes 1.07 L (1.2-3.4) k/cumm BUN (7-18) mg/dL Calcium (8.5-10.1) mg/dL Magnesium (1.8-2.4) mg/dL Urine Blood (Negative) Vital Signs Temperature 36.3 C L 08/13/18 14:25 Temperature Source Tympanic 08/13/18 14:25 Pulse 63 08/13/18 14:25 Pulse Rhythm Regular 08/13/18 08:00 Pulse 84 08/12/18 18:50 Respiratory Rate 18 08/13/18 14:25 Respiratory Effort 08/13/18 08:37 Respiratory Depth Normal 08/13/18 08:00 Respiratory Pattern Normal 08/13/18 08:00 Blood Pressure 152/82 H 08/13/18 14:25 Blood Pressure Mean 76 08/13/18 08:37 Pulse Oximetry 98 08/13/18 14:25 Oxygen Delivery Method Room Air 08/13/18 14:25 Oxygen Flow Rate 0 08/13/18 14:25 Pain Level 0 08/13/18 08:37 Intake & Output 08/12/18 08/13/18 08/13/18 23:59 11:59 23:59 Intake Total 1000 / 1000 1000 / 1000 1000 / 1000 Output Total 475 / 475 Balance 1000 / 1000 525 / 525 1000 / 1000 Weight 51.6 kg 50.5 kg Intake: IV 1000 / 1000 1000 / 1000 1000 / 1000 Output: Urine 475 / 475 Other: Urine Color Yellow Straw Urine Appearance Clear Comment Patient voided in toilet x2 Voiding Methods Toilet Laboratory Results WBC 4.10 k/cumm (4.4-10.8) L D 08/13/18 06:37 RBC 4.05 m/cumm (4.00-5.20) 08/13/18 06:37 Hgb 13.0 g/dL (12.0-15.5) 08/13/18 06:37 Hct 39.3 % (36.0-46.0) 08/13/18 06:37 MCV 97.0 fL (80-95) H 08/13/18 06:37 MCH 32.1 pg (27.0-33.0) 08/13/18 06:37 MCHC 33.1 g/dL (32.0-36.0) 08/13/18 06:37 RDW 12.7 % (11.7-14.6) 08/13/18 06:37 Plt Count 152 x1000/uL (130-400) 08/13/18 06:37 MPV 10.7 fL (8.0-11.0) 08/13/18 06:37 Immature Gran % 0.0 08/13/18 06:37 Neutrophils % 62.2 08/13/18 06:37 Lymphocytes % 26.1 08/13/18 06:37 Monocytes % 9.5 08/13/18 06:37 Eosinophils % 2.0 08/13/18 06:37 Basophils % 0.2 08/13/18 06:37 Absolute Neutrophils 2.55 k/cumm (1.2-6.7) 08/13/18 06:37 Absolute Lymphocytes 1.07 k/cumm (1.2-3.4) L 08/13/18 06:37 Absolute Monocytes 0.39 k/cumm (0.11-0.7) 08/13/18 06:37 Absolute Eosinophils 0.08 k/cumm (0.0-0.7) 08/13/18 06:37 Absolute Basophils 0.01 k/cumm (0.0-0.2) 08/13/18 06:37 Sodium 142 mmol/L (136-145) 08/13/18 06:37 Potassium 3.7 mmol/L (3.5-5.1) 08/13/18 06:37 Chloride 107 mmol/L (98-107) 08/13/18 06:37 Carbon Dioxide 27.4 mmol/L (21.0-32.0) 08/13/18 06:37 Anion Gap 7.6 mmol/L (3-11) 08/13/18 06:37 BUN 14 mg/dL (7-18) D 08/13/18 06:37 Creatinine 0.59 mg/dL (0.55-1.02) 08/13/18 06:37 Estimated GFR/1.73 m2 >= 60.00 (mL/min/1.73m2) 08/13/18 06:37 Glucose 78 mg/dL (70-100) 08/13/18 06:37 Lactate 0.6 mmol/L (0.6-1.4) 08/12/18 18:25 Calcium 8.0 mg/dL (8.5-10.1) L 08/13/18 06:37 Magnesium 1.7 mg/dL (1.8-2.4) L 08/12/18 15:50 Total Bilirubin 0.4 mg/dL (0.2-1.0) 08/12/18 15:50 AST 22 U/L (15-37) 08/12/18 15:50 ALT 35 U/L (12-78) 08/12/18 15:50 Alkaline Phosphatase 78 U/L (46-116) 08/12/18 15:50 Troponin I < 0.02 ng/mL (0.00-0.06) 08/12/18 15:50 Total Protein 6.8 g/dL (6.4-8.2) 08/12/18 15:50 Albumin 3.6 g/dL (3.4-5.0) 08/12/18 15:50 Lipase 299 U/L (73-393) 08/12/18 15:50 Urine Color Yellow (Yellow) 08/12/18 18:58 Urine Clarity Clear 08/12/18 18:58 Urine pH 5.5 (5-8) 08/12/18 18:58 Ur Specific [place] <= 1.005 (1.005-1.025) 08/12/18 18:58 Urine Protein Negative mg/dL (Negative) 08/12/18 18:58 Urine Ketones Negative mg/dL (Negative) 08/12/18 18:58 Urine Blood Trace-lysed (Negative) H 08/12/18 18:58 Urine Nitrite Negative (Negative) 08/12/18 18:58 Urine Bilirubin Negative (Negative) 08/12/18 18:58 Urine Urobilinogen 0.2 EU/dL (Up TO 0.2) 08/12/18 18:58 Ur Leukocyte Esterase Negative (Negative) 08/12/18 18:58 Urine RBC 0-2 (0-2) 08/12/18 18:58 Urine WBC Negative HPF (0-5) 08/12/18 18:58 Ur Epithelial Cells Rare HPF (Negative) 08/12/18 18:58 Urine Crystals Negative HPF (Negative) 08/12/18 18:58 Urine Bacteria Negative HPF (Negative) 08/12/18 18:58 Urine Casts Negative LPF (Negative) 08/12/18 18:58 Urine Mucus Negative (Negative) 08/12/18 18:58 Urine Other Negative (Negative) 08/12/18 18:58 Ur Culture Indicated? No 08/12/18 18:58 Urine Glucose Negative mg/dL (Negative) 08/12/18 18:58
[2018-08-13] MEDS: Ketorolac 15 MG/ML VIAL IVP (18:19)
[2018-08-13] MEDS: Polyethylene Glycol 3350 17 GM PACKET PO (21:55)
[2018-08-14] MEDS: Ketorolac 15 MG/ML VIAL IVP (06:23)
[2018-08-14] MEDS: Normal Saline Flush 10 ML SYR IVP ×2 (06:31→09:07)
[2018-08-14] MEDS: Normal Saline 1,000 ML 125 ML IV (07:15)
[2018-08-14 07:30] VITALS: BP 134/77; PULSE 68; RESP 16; TEMP 36.7; O2SAT 99
[2018-08-14] MEDS: Polyethylene Glycol 3350 17 GM PACKET PO (09:07)
[2018-08-14] MEDS: Pantoprazole 40 MG VIAL IVP (09:07)
--- NOTE | 2018-08-14 12:28 | PDOC.CMDIS ---
- If Service Date Differs Date of service: 08/14/18 Time of Service: 12:28 LACE Index Scoring Tool - Questions: Length of Stay (in days): 3 Acuity (Admit via E.D.?): Yes E.D. Visits: 1 - Answers: Total Score: 7 Risk of Readmission: Low Risk Care Management Discharge Reason for Hospitalization: Abdominal pain Discharge Plan: Yvonne will return home today with no services. She will F/U with Dr. Danielle and plan of care as prescribed. Yvonne's family will transport. Patient/Family Education Needs: Review DC instructions, any limitations, and discuss Ask Me Three
--- NOTE | 2018-08-14 12:46 | W.PM.DS.N ---
Date of service: 08/14/18 Time of Service: 12:46 DS: Diagnosis Discharge Diagnosis (1) Abdominal pain: Status: Acute Discharge Plan Disposition Patient Disposition: HOME Condition: Stable Discharge Details Chief Complaint: Abd Prob Reason For Visit: ABDOMINAL PAIN, R/O SBO Admit Date/Time: 08/12/18 18:17 Admit Provider: Diana Danielle Attending Provider: Diana Danielle Primary Care Provider: Sole Adkins ED Provider: Eduardo Guerrero Hospital Course Hospital Course: 72 y/o female admitted through the ED for c/o abdominal pain. Multiple potential etiologies identified on CT. Follow-up imaging with abdominal and pelvic ultrasounds and abdominal xray obtained. VRADS reports on CT, abdominal ultrasound, and AXR noted. VRADS report on pelvic ultrasound not received. Awaiting final reports. ? gastroenteritis/ developing volvulus on CT. Patient also noted to have hepatic and renal cysts, (+) cholelithiasis, and ? splenic artery aneurysm vs. calcified node on AXR/ultrasound. (+) constipation also noted. Complex cysts seen on right ovary on CT. Ultrasound report pending. Patient's abdominal pain improved during hospital stay. Afebrile. No leukocytosis. (+) BM with Miralax. Patient is feeling better and wishes to go home. SHe notes some slight discomfort across her back. Will arrange for outpatient follow-up with PCP/ General Surgery/ PHOTONICS ENGINEER re: imaging findings as noted above. Patient notes that she is also due for a screening colonoscopy. Instructed patient to continue Miralax at home prn constipation. Resumed home meds. Instructed patient to stay on a low fat diet. Home Meds and New Rx's Prescriptions: New polyethylene glycol 3350 17 gram Powder In Packet 17 g PO BID PRN (Reason: Constipation) Qty: 0 RF: 0 Continue L CARNITINE 1,000 mg PO DAILY RF: 0 green tea leaf extract 250 MG capsule 250 mg PO DAILY RF: 0 multivitamin [Daily Multi-Vitamin] 1 EACH tablet 1 ea PO DAILY RF: 0 ascorbic acid (vitamin C) [Vitamin C] 1,000 MG tablet 1,000 mg PO DAILY RF: 0 venlafaxine [Effexor XR] 37.5 MG capsule,extended release 24hr 37.5 mg PO DAILY Qty: 90 RF: 3 risedronate [Actonel] 35 MG tablet 35 mg PO weekly Qty: 12 RF: 4 levothyroxine 50 MCG tablet 50 mcg PO DAILY Qty: 90 RF: 4 tetracycline 250 MG capsule 250 mg PO DAILY RF: 0 zinc gluconate 50 MG tablet 50 mg PO DAILY RF: 0 pycnogenol 30 mg PO DAILY RF: 0 lysine [L-Lysine] 500 MG capsule 500 mg PO DAILY RF: 0 aspirin [Aspir-81] 81 MG tablet,delayed release (DR/EC) 1 tab PO DAILY RF: 0 flaxseed oil 1,000 MG capsule 1 cap DAILY RF: 0 black cohosh [Remeprin] 20 MG tablet 20 mg PO HS RF: 0 diphenhydramine-acetaminophen [Tylenol PM Extra Strength] 1 EACH tablet 1 tab PO PRN PRNRF: 0 vitamin E 400 UNIT capsule 400 unit PO HS RF: 0 cholecalciferol (vitamin D3) 1,000 UNIT capsule 1,000 unit PO DAILY RF: 0 omega-3 fatty acids-fish oil [Fish Oil] 1 EACH capsule 2 cap DAILY RF: 0 calcium carbonate-vitamin D3 [Calcium 600 + D(3)] 1 EACH tablet 1 ea PO DAILY RF: 0 glucosamine brown 2KCl-chondroit [Glucosamine Sulf-Chondroitin] 1 EACH capsule 1 cap HS RF: 0 coenzyme Q10 [H2Q CoQ10] 75 GM powder 75 gm PO DAILY RF: 0 vit A and D3 in cod liver oil [cod liver oil] 1 EACH capsule 1 cap DAILY RF: 0 Discharge Instructions Instructions: Constipation (GEN), Gallstones (GEN), Acute Abdominal Pain (DC) Additional Instructions: Patient may use OTC Miralax as directed. No prescription sent. Stand Alone Forms: Nursing Discharge Form Referrals: Sole Adkins MD [Primary Care Provider] - (Hospital follow in 1 week.) Mikael Ingram DO [ [facility] STAFF PHYSICIAN] - (Follow-up in 1 week re: cholelithiasis, due for colonoscopy, ? splenic artery aneurysm) Yvonne Palacios MD [ [facility] STAFF PHYSICIAN] - (Follow-up in 1 week re: right ovarian complex cyst/ postmenopausal) Diana Danielle MD [ [facility] STAFF PHYSICIAN] - (Please call [facility] on Wednesday to schedule a follow up appointment for within 2 weks. [phone]) Activity:: Activity as Tolerated Equipment/Supplies:: No Equipment Needed Diet:: Low fat Discharge Orders Discharge Orders: Discharge Order (Routine); Ordered 08/14/18 Ordered By: Diana Danielle Exam Const General: cooperative, comfortable and no acute distress Nutritional Appearance: well nourished Orientation: alert and oriented x3 HENMT Head: normocephalic and atraumatic Resp Effort & Inspection: normal respiratory effort and able to speak in complete sentences GI Inspection: non-distended Palpation: soft, not firm, no guarding, no masses, not rigid and tender (minimal tenderness to palpation diffusely, improved) Skin General skin exam: no rashes or lesions noted and no jaundice Neuro General: alert and oriented x3 Speech: speech normal DS: Data Vitals/I&O Vitals and I&O: Vital Signs Temperature 36.7 C 08/14/18 07:30 Temperature Source Tympanic 08/14/18 07:30 Pulse 68 08/14/18 07:30 Pulse Rhythm Regular 08/14/18 10:32 Pulse 84 08/12/18 18:50 Respiratory Rate 16 08/14/18 07:30 Respiratory Effort Non-Labored 08/14/18 10:32 Respiratory Depth Normal 08/14/18 10:32 Respiratory Pattern Normal 08/14/18 10:32 Blood Pressure 134/77 08/14/18 07:30 Blood Pressure Mean 76 08/13/18 08:37 Pulse Oximetry 99 08/14/18 07:30 Oxygen Delivery Method Room Air 08/14/18 07:30 Oxygen Flow Rate 0 08/14/18 07:30 Pain Level 6 08/14/18 06:23 Intake & Output 08/13/18 08/14/18 08/14/18 23:59 11:59 23:59 Intake Total 3000 / 3000 1670.833 / 1670.833 Output Total 1999 1900 / 1900 800 / 800 Balance 999 / 999 -229.167 / -229.167 -800 / -800 Intake: IV 1999 920.833 / 920.833 Oral 999 750 / 750 Output: Urine 1999 1900 / 1900 800 / 800 Other: Urine Color Yellow Yellow Yellow Urine Appearance Clear Clear Clear Urine Odor Normal Comment hat in toilet not emptied from prior shift Stool Size Small Stool Characteristics Soft Brown Voiding Methods Toilet
== END 2018-08-14 13:45 | disposition home or self-care (01) ==
LOC: ER 19:26 → ICU 20:08 → MS 08-13 13:31
PROVIDERS: Admitting Provider Surgery; Emergency Provider Emergency Medicine; PCP Family Medicine; Visit Provider Surgery
DX: R10.9 Unspecified abdominal pain (principal); M54.9 Dorsalgia, unspecified; K59.00 Constipation, unspecified; N83.201 Unspecified ovarian cyst, right side; Z78.0 Asymptomatic menopausal state; K80.20 Calculus of gallbladder without cholecystitis without obstruction; K76.89 Other specified diseases of liver; N28.1 Cyst of kidney, acquired; Z23 Encounter for immunization
CPT/HCPCS: 36415; 80048; 80053; 83690; 93005; 96360; 96361; 99217; 99219; 99222; 99225; 99232; 99238; 99285; 71046; 74019; 74177; 76700; 76830; 76856; 81003; 81015; 83605; 83735; 84484; 85025; 93010; G0378; J1885; J3490

== ENCOUNTER → 2018-08-29 10:19 | Outpatient (BNVA) | payer MEDICARE, OTHER, SELFPAY | PROVIDERS: PCP Family Medicine; Referring Provider Family Medicine; Visit Provider Surgery | DX: Z86.010 Personal history of colon polyps (principal); K59.00 Constipation, unspecified; K80.20 Calculus of gallbladder without cholecystitis without obstruction; N83.201 Unspecified ovarian cyst, right side | CPT/HCPCS: 99214 ==

== ENCOUNTER 2018-09-15 19:33 | Emergency (ER) | payer MEDICARE, OTHER, SELFPAY ==
[2018-09-15] VITALS (40 sets, daily range): BP systolic 100–120; BP diastolic 45–96; PULSE 66–75; RESP 8–24; TEMP 36.4; O2SAT 86–98
[2018-09-15] MEDS: HYDROmorphone 2 MG/ML VIAL 1 MG IVP ×3 (20:00→23:34)
--- NOTE | 2018-09-15 20:01 | ED.GENADUL_ITS ---
Discharge Plan Disposition Patient Disposition: [facility] Condition: Stable Discharge Details Chief Complaint: Orthopedic Clinical Impression: Closed fracture of left hip Reason For Visit: JUDYEX Primary Care Provider: Sole Adkins ED Provider: Osman Orta Home Meds and New Rx's Prescriptions: No Action bisacodyl [Dulcolax (bisacodyl)] 5 mg tablet,delayed release (DR/EC) 10 mg PO BID Qty: 4 RF: 0 L CARNITINE 1,000 mg PO DAILY RF: 0 green tea leaf extract 250 MG capsule 250 mg PO DAILY RF: 0 multivitamin [Daily Multi-Vitamin] 1 EACH tablet 1 ea PO DAILY RF: 0 ascorbic acid (vitamin C) [Vitamin C] 1,000 MG tablet 1,000 mg PO DAILY RF: 0 venlafaxine [Effexor XR] 37.5 MG capsule,extended release 24hr 37.5 mg PO DAILY Qty: 90 RF: 3 levothyroxine 50 MCG tablet 50 mcg PO DAILY Qty: 90 RF: 4 zinc gluconate 50 MG tablet 50 mg PO DAILY RF: 0 pycnogenol 30 mg PO DAILY RF: 0 lysine [L-Lysine] 500 MG capsule 500 mg PO DAILY RF: 0 aspirin [Aspir-81] 81 MG tablet,delayed release (DR/EC) 1 tab PO DAILY RF: 0 flaxseed oil 1,000 MG capsule 1 cap DAILY RF: 0 black cohosh [Remeprin] 20 MG tablet 20 mg PO HS RF: 0 vitamin E 400 UNIT capsule 400 unit PO HS RF: 0 cholecalciferol (vitamin D3) 1,000 UNIT capsule 1,000 unit PO DAILY RF: 0 omega-3 fatty acids-fish oil [Fish Oil] 1 EACH capsule 2 cap DAILY RF: 0 calcium carbonate-vitamin D3 [Calcium 600 + D(3)] 1 EACH tablet 1 ea PO DAILY RF: 0 glucosamine brown 2KCl-chondroit [Glucosamine Sulf-Chondroitin] 1 EACH capsule 1 cap HS RF: 0 coenzyme Q10 [H2Q CoQ10] 75 GM powder 75 gm PO DAILY RF: 0 vit A and D3 in cod liver oil [cod liver oil] 1 EACH capsule 1 cap DAILY RF: 0 Medical Decision Making 73 yo female states she slipped outside on snow and landed on left hip and couldn't bear weight so ems was called. Denies head trauma or loc, has no headache or neck pain on palpation or rom. Denies any chest pain or sob or abdominal pain. Unable to move left hip due to pain, intact distal vasculature, no deformity of knee, tib/fib ankle or foot on this side and has no pain on rom of the entire right leg. Will xray the left hip and given it is likely fractured obtain preop screening labs pt remains stable, has left intertrochanteric femur. We do not have any bed availability here, will try to transfer to another facility spoke with ortho at [facility] and hospitalist Graciela ya PROSTHODONTIST/EDUCATOR who accept pt in transfer. Differential Diagnosis fx, contusion Imaging Data Radiologic Study: Attestation: I personally reviewed and interpreted this imaging study as follows: Imaging: X-Ray Radiologist's impression: left hip fx Radiologic Study #2: Attestation: I personally reviewed and interpreted this imaging study as follows: Imaging: X-Ray Radiologist's impression: no acute findings Lab Data Lab results reviewed: Yes I reviewed the patient's lab results. ECG Data Attestation: I personally reviewed and interpreted this ECG (s) as follows: Prior ECG tracings: available for review Interpretation: sinus rhythm, rate of 68, pr 144, no acute st t wave changes HPI General Mode of arrival: EMS . Date/Time Provider Initiated Documentation: 09/15/18 19:49 . Limitations to Documentation: no limitations . Information obtained by: patient . History of Present Illness 73 year old F presents to the emergency department with the chief complaint of left hip pain, described as moderate and severe, with intensity rated at 10. Quality is described as stabbing and aching, and is localized to the left and lower extremity. Patient reports no radiation. Patient started experiencing this hour(s) (1) and it has been constant. No relieving factors improve symptom(s), No exacerbating factors reported . Patient did receive the following treatments prior to arrival, none Related Data Home Medications Medication Instructions Recorded Confirmed aspirin [Aspir-81] 1 tab PO DAILY 12/16/12 09/15/18 black cohosh [Remeprin] 20 mg PO HS 12/16/12 09/15/18 calcium carbonate-vitamin D3 1 ea PO DAILY 12/16/12 09/15/18 [Calcium 600 + D(3)] cholecalciferol (vitamin D3) 1,000 unit PO DAILY 12/16/12 09/15/18 coenzyme Q10 [H2Q CoQ10] 75 gm PO DAILY 12/16/12 09/15/18 flaxseed oil 1 cap DAILY 12/16/12 09/15/18 glucosamine brown 2KCl-chondroit 1 cap HS 12/16/12 09/15/18 [Glucosamine Sulf-Chondroitin] lysine [L-Lysine] 500 mg PO DAILY 12/16/12 09/15/18 omega-3 fatty acids-fish oil [Fish 2 cap DAILY 12/16/12 09/15/18 Oil] vit A and D3 in cod liver oil [cod 1 cap DAILY 12/16/12 09/15/18 liver oil] vitamin E 400 unit PO HS 12/16/12 09/15/18 L Carnitine 1,000 mg PO DAILY 01/30/15 09/15/18 green tea leaf extract 250 mg PO DAILY 05/11/16 09/15/18 ascorbic acid (vitamin C) [Vitamin 1,000 mg PO DAILY 10/04/17 09/15/18 C] multivitamin [Daily Multi-Vitamin] 1 ea PO DAILY 10/04/17 09/15/18 venlafaxine [Effexor XR] 37.5 mg PO DAILY #90 tab-cap 10/04/17 09/15/18 levothyroxine 50 mcg PO DAILY #90 tab-cap 11/07/17 09/15/18 Pycnogenol 30 mg PO DAILY 11/24/17 09/15/18 zinc gluconate 50 mg PO DAILY 11/24/17 09/15/18 bisacodyl 5 mg tablet,delayed 10 mg PO BID #4 tab 08/29/18 09/15/18 release Previous Rx's Medication Instructions Recorded venlafaxine [Effexor XR] 37.5 mg PO DAILY #90 tab-cap 10/04/17 levothyroxine 50 mcg PO DAILY #90 tab-cap 11/07/17 bisacodyl 5 mg tablet,delayed 10 mg PO BID #4 tab 08/29/18 release Allergies Allergy/AdvReac Type Severity Reaction Status Date / Time doxycycline AdvReac Intermediate UPSET Verified 09/15/18 19:54 STOMACH PROCAINE AdvReac Intermediate TACHYCARDIA Uncoded 09/15/18 19:54 General Stated Complaint: Orthopedic YOBANY: 2 Review of Systems Review of Systems All systems reviewed & are unremarkable except as noted in HPI and below Constitutional Denies chills, Denies fever(s) and Denies weakness Cardiovascular Denies chest pain and Denies dyspnea Respiratory Denies dyspnea Gastrointestinal Denies abdominal pain, Denies nausea and Denies vomiting Neurologic Denies weakness Psychiatric Denies depression PFSH Depression (Chronic) Hypothyroidism (Chronic) Osteoporosis (Chronic) Family History Mother Depression Heart disease Father Essential hypertension Heart disease Hyperlipidemia Sister Essential hypertension Heart disease Sister Substance abuse Depression Brother Essential hypertension Heart disease Grandfather Cerebrovascular accident Grandfather Heart disease Cerebrovascular accident Grandmother Depression Heart disease Cerebrovascular accident Grandmother Heart disease Family History Messer's palsy Skin cancer Osteoporosis Arthritis Kidney stones Kidney disease Thyroid disorder Daughter Substance abuse Diabetes Depression Daughter Substance abuse Diabetes Depression Biopsy of breast (~1991) OOPHRECTOMY, U/L REPAIR LEFT PATELLA FRACTURE (12/03/15) Family History Mother Depression Heart disease Father Essential hypertension Heart disease Hyperlipidemia Sister Essential hypertension Heart disease Sister Substance abuse Depression Brother Essential hypertension Heart disease Grandfather Cerebrovascular accident Grandfather Heart disease Cerebrovascular accident Grandmother Depression Heart disease Cerebrovascular accident Grandmother Heart disease Family History Messer's palsy Skin cancer Osteoporosis Arthritis Kidney stones Kidney disease Thyroid disorder Daughter Substance abuse Diabetes Depression Daughter Substance abuse Diabetes Depression Medical History Depression (Chronic) Hypothyroidism (Chronic) Osteoporosis (Chronic) Social History lives independently: Yes Smoking/Tobacco Use Status: Former Tobacco Use alcohol intake: current alcohol intake frequency: holidays/special occasions only substance use type: does not use Surgical History Biopsy of breast (~1991) OOPHRECTOMY, U/L REPAIR LEFT PATELLA FRACTURE (12/03/15) Social History lives independently: Yes Smoking/Tobacco Use Status: Former Tobacco Use alcohol intake: current alcohol intake frequency: holidays/special occasions only substance use type: does not use Exam Const General: no acute distress Orientation: alert HENMT Head: normal to inspection Ears: external ears normal General nose exam: external nose normal Mouth: moist mucous membranes Eyes General: appearance normal, both eyes and all related structures Neck Neck: normal visual inspection Resp Effort & Inspection: normal respiratory effort and able to speak in complete sentences Cardio Rate: regular rate Skin General skin exam: no rashes or lesions noted Neuro General: alert and oriented x3 Extrem General: normal capillary refill Psych Mental Status: mental status grossly normal Course Vital Signs Temperature 36.4 C L 09/15/18 19:45 Pulse 68 09/15/18 19:45 Respiratory Rate 11 L 09/15/18 19:45 Blood Pressure 113/96 H 09/15/18 19:45 Pulse Oximetry 96 09/15/18 19:45 Temperature 36.4 C L 09/15/18 19:45 Temperature Source Temporal Artery Scan 09/15/18 19:45 Pulse 68 09/15/18 19:45 Respiratory Rate 11 L 09/15/18 19:45 Respiratory Effort 09/15/18 19:45 Blood Pressure 113/96 H 09/15/18 19:45 Pulse Oximetry 96 09/15/18 19:45 Oxygen Delivery Method Room Air 09/15/18 19:45 Oxygen Flow Rate 0 09/15/18 19:45 Pain Level 5 09/15/18 19:52
[2018-09-15 20:29] LABS: Abs Immature Grans 0.03 k/cumm (0.0-0.09); Absolute Basophil Count 0.01 k/cumm (0.0-0.2); Absolute Eosinophil Count 0.04 k/cumm (0.0-0.7); Absolute Lymphocyte Count 1.11 k/cumm (1.2-3.4); Absolute Monocyte Count 0.71 k/cumm (0.11-0.7); Basophils % 0.1; Eosinophils % 0.3; HGB 13.5 g/dL (12.0-15.5); Immature Grans % 0.3; Lymphocytes % 9.3; Mean Corp. HGB Concentration 34.6 g/dL (32.0-36.0); Mean Corpuscular Volume 95.4 fL (80-95); Platelet Count 178 x1000/uL (130-400); RBC 4.09 m/cumm (4.00-5.20); RBC Distribution Width 12.2 % (11.7-14.6); White Blood Cell Count 11.91 k/cumm (4.4-10.8)
--- NOTE | 2018-09-15 20:35 | DI.RAD_ITS ---
SYMPTOMS/DIAGNOSIS: LEFT HIP PAIN S/P FALL SUPINE AP CHEST: The heart is not enlarged. The lungs are clear and well expanded. No evidence of acute disease. LEFT HIP AND PELVIS: Three views were obtained and show comminuted intertrochanteric fracture of the left femur with moderate varus angulation and moderate displacement at the fracture site. No additional fracture is seen.
[2018-09-15 20:47] LABS: ALT 31 U/L (12-78); AST 21 U/L (15-37); Albumin 3.4 g/dL (3.4-5.0); Alkaline Phosphatase 60 U/L (46-116); Anion Gap 10.3 mmol/L (3-11); BUN 19 mg/dL (7-18); Bilirubin, Total 0.3 mg/dL (0.2-1.0); CO2 26.7 mmol/L (21.0-32.0); CREATININE 0.65 mg/dL (0.55-1.02); Chloride 99 mmol/L (98-107); Glucose 124 mg/dL (70-100); Magnesium 1.7 mg/dL (1.8-2.4); Potassium 3.4 mmol/L (3.5-5.1); Sodium 136 mmol/L (136-145); Total Protein 6.2 g/dL (6.4-8.2); Troponin I < 0.02 ng/mL (0.00-0.06)
[2018-09-15 20:49] LABS: INR 1.1 (1.0-3.5); Prothrombin Time 10.3 sec (9.3-10.8)
--- NOTE | 2018-09-15 20:49 | DI.VRAD_ITS ---
EXAM: XR Left Hip with Pelvis when Performed, 2 or 3 Views EXAM DATE/TIME: 09/15/2018 7:56 PM CLINICAL HISTORY: 73 years old, female; Pain; Hip pain; Left hip; Patient HX: S/P fall in patients driveway, severe left hip pain. TECHNIQUE: XR Left hip with pelvis when performed, 2 or 3 views COMPARISON: US abdomen pelvis 08/13/2018 12:50 PM FINDINGS: Bones/joints: Impacted nondisplaced fracture of the left intertrochanteric femur with varus angular deformity. No dislocation. Degenerative changes within the lower lumbar spine, both sacral iliac joints and pubic symphysis. Minimal degenerative arthrosis of both hip joints. Osteopenia. Soft tissues: Normal. IMPRESSION: Impacted nondisplaced fracture of the left intertrochanteric femur with varus angular deformity. Dictated and Authenticated by: Mendel Ferrer MD. Ordering:CLEOPATRA COWAN MD
--- NOTE | 2018-09-15 20:50 | DI.VRAD_ITS ---
EXAM: XR Chest, 1 View EXAM DATE/TIME: 09/15/2018 7:56 PM CLINICAL HISTORY: 73 years old, female; Screening exam; Pre-operative exam; Other: Left hip injury; Patient HX: Fall today, left hip pain. TECHNIQUE: XR of the chest, 1 view. COMPARISON: CR XR CHEST 2V PA LATERAL 08/12/2018 5:14 PM FINDINGS: The cardiomediastinal silhouette and pulmonary vasculature are within normal limits. The lungs are clear. No pleural effusion or pneumothorax is identified. IMPRESSION: No acute process. Dictated and Authenticated by: Mendel Ferrer MD. Ordering:CLEOPATRA COWAN MD
[2018-09-16] VITALS: PULSE 70; RESP 14; O2SAT 95
[2018-09-16 00:10] VITALS: PULSE 73; RESP 18; O2SAT 98
[2018-09-16 00:20] VITALS: PULSE 68; RESP 13; O2SAT 96
[2018-09-16 00:42] VITALS: BP 116/60; PULSE 68; RESP 13; O2SAT 96
== END 2018-09-16 00:40 | disposition short-term general hospital (02) ==
PROVIDERS: Emergency Provider Emergency Medicine; PCP Family Medicine
DX: S72.142A Displaced intertrochanteric fracture of left femur, initial encounter for closed fracture (principal); W00.0XXA Fall on same level due to ice and snow, initial encounter
CPT/HCPCS: 36415; 80053; 86850; 86900; 86901; 93005; 96374; 99285; 71045; 73502; 83735; 84484; 85025; 85610; 85730; 93010

== ENCOUNTER 2019-05-04 00:43 | Outpatient (CLI) | payer MEDICARE, OTHER, SELFPAY ==
--- NOTE | 2019-05-04 10:55 | DI.MAMMO_ITS ---
SYMPTOM/DIAGNOSIS: SCREENING, Z12.31 MAMMOGRAMS: Mammograms were interpreted according to the usual protocol including computer analysis with CAD system, tomosynthesis and C view imaging. The breast tissue is composed of scattered fibroglandular densities. There are no suspicious calcifications. There has been no significant interval change when compared with previous examinations. SUMMARY: No evidence of malignancy, category 1. Yearly screening mammography is recommended. Breast density, Category B. MQSA ASSESSMENT OF FINDINGS: Negative. Category 1. Patient will receive a letter notifying them of these results. BI-RADS category B. There are scattered areas of fibroglandular density.
== END 2019-05-04 01:03 ==
PROVIDERS: PCP Family Medicine; Visit Provider Family Medicine
DX: Z12.31 Encounter for screening mammogram for malignant neoplasm of breast (principal)
CPT/HCPCS: 77063; 77067

== ENCOUNTER 2020-01-02 12:01 | Outpatient (CLI) | payer MEDICARE, OTHER, SELFPAY ==
[2020-01-03 16:29] LABS: COVID-19 RT-PCR Result Not Detected
== END 2020-01-02 12:21 ==
LOC: EP 12:10 → LBO 14:26
PROVIDERS: PCP Family Medicine; Visit Provider Family Medicine
DX: Z20.828 Contact with and (suspected) exposure to other viral communicable diseases (principal); Z11.59 Encounter for screening for other viral diseases; R05 Cough; R50.9 Fever, unspecified; J06.9 Acute upper respiratory infection, unspecified
CPT/HCPCS: 87449; U0003

== ENCOUNTER 2020-02-27 01:20 | Outpatient (CLI) | payer MEDICARE, OTHER, SELFPAY ==
[2020-02-27 12:02] LABS: TSH 1.79 uIU/mL (0.36-3.74)
== END 2020-02-27 01:40 ==
PROVIDERS: PCP Family Medicine; Visit Provider Family Medicine
DX: E03.9 Hypothyroidism, unspecified (principal)
CPT/HCPCS: 36415; 84443

== ENCOUNTER 2020-03-13 12:41 | Outpatient (CLI) | payer MEDICARE, OTHER, SELFPAY ==
[2020-03-14 02:47] LABS: COVID-19 RT-PCR UVMMC Result Negative (Negative)
== END 2020-03-13 13:01 ==
PROVIDERS: PCP Family Medicine; Visit Provider Family Medicine
DX: R50.9 Fever, unspecified (principal)
CPT/HCPCS: U0003

== ENCOUNTER 2020-03-18 03:47 | Outpatient (CLI) | payer MEDICARE, OTHER, SELFPAY ==
[2020-03-18 11:29] LABS: Absolute Basophil Count 0.01 k/cumm (0.0-0.2); Absolute Eosinophil Count 0.06 k/cumm (0.0-0.7); Absolute Lymphocyte Count 0.95 k/cumm (1.2-3.4); Absolute Neutrophil Count 3.03 k/cumm (1.2-6.7); Basophils % 0.2; Eosinophils % 1.3; HCT 44.8 % (36.0-46.0); HGB 15.1 g/dL (12.0-15.5); Lymphocytes % 20.4; Mean Corp. HGB Concentration 33.7 g/dL (32.0-36.0); Mean Corpuscular Hemoglobin 32.8 pg (27.0-33.0); Mean Corpuscular Volume 97.2 fL (80-95); Mean Platelet Volume 10.3 fL (8.0-11.0); Monocytes % 12.9; Neutrophils % 65.2; Platelet Count 212 x1000/uL (130-400); RBC 4.61 m/cumm (4.00-5.20); RBC Distribution Width 13.3 % (11.7-14.6); White Blood Cell Count 4.65 k/cumm (4.4-10.8)
[2020-03-18 12:22] LABS: ALT 33 U/L (14-59); AST 26 U/L (15-37); Albumin 3.9 g/dL (3.4-5.0); Alkaline Phosphatase 63 U/L (46-116); Anion Gap 8.8 mmol/L (3-11); BUN 10 mg/dL (7-18); Bilirubin, Total 0.5 mg/dL (0.2-1.0); CO2 30.2 mmol/L (21.0-32.0); CREATININE 0.71 mg/dL (0.55-1.02); Calcium 9.2 mg/dL (8.5-10.1); Chloride 102 mmol/L (98-107); Glucose 89 mg/dL (74-106); Sodium 141 mmol/L (136-145); Total Protein 6.7 g/dL (6.4-8.2)
[2020-03-18 15:58] LABS: ESR 5 mm/hr (0-30)
[2020-03-19 10:41] LABS: Lyme Ab w Rflx to Lyme Confirm Negative (Negative)
[2020-03-20 22:57] LABS: Anaplasma phagocytophilum Negative (Negative); B. miyamotoi PCR Negative (Negative); Babesia divergens/MO-1 Negative (Negative); Babesia duncani Negative (Negative); Babesia microti Negative (Negative); Ehrlichia chaffeensis Negative (Negative); Ehrlichia ewingii/canis Negative (Negative); Ehrlichia muris eauclairensis Negative (Negative)
== END 2020-03-18 04:07 ==
PROVIDERS: PCP Family Medicine; Visit Provider Family Medicine
DX: R10.9 Unspecified abdominal pain (principal); R53.83 Other fatigue; R53.81 Other malaise
CPT/HCPCS: 36415; 80053; 85652; 87798; 85025; 86618

== ENCOUNTER 2020-05-13 00:48 | Outpatient (CLI) | payer MEDICARE, OTHER, SELFPAY ==
--- NOTE | 2020-05-13 07:30 | DI.RAD_ITS ---
EXAM: XR CHEST 2V PA LATERAL CLINICAL HISTORY: SOB, night sweats,fatigue,R06.02 TECHNIQUE: 2D digital imaging was performed. COMPARISON: CR XR CHEST 2V PA LATERAL from 08/12/2018 CR XR CHEST 1V IN DI DEPT from 09/15/2018 FINDINGS: The heart size is normal. The aorta is tortuous. The lungs are hyperinflated but clear. Calcified mediastinal lymph nodes are again noted. There is a stable midthoracic compression fracture. IMPRESSION: No acute abnormality. Hyperinflation.
--- NOTE | 2020-05-13 07:30 | DI.NM_ITS ---
APPROVED REPORT Exam: Pharmacologic Patient Location: Out-Patient Room/Bed: Stress Nurse: Rosalia Goyal RN BMI: 20.90 Baseline Rhythm: Sinus Rhythm Indications: SOB, fatigue Medical History Medical History: Depression Allergies: Doxycycline, procaine Pretest Chest Pain Characteristics: No chest pain Exercise History: Indeterminate Lung Sounds: Clear to auscultation Heart Sounds: Regular Stress Test Details Test: Pharmacologic stress testing performed using 0.4 mg of regadenoson per 5 mL given IV over 10 s econds. Reason for pharmacologic stress test: physical limitation. Nuclear Acquisition: Rest Tc-99m/Stress Tc-99m 1 day Rest Isotope: Tc-99m Sestamibi. Dose: 10.5 Date: 05/13/2020 Injection Time: 0845 Stress Isotope: Tc-99m Sestamibi. Dose: 31 Date: 05/13/2020 Injection Time: 1010 HR Resting HR Supine: 74 bpm Max Heart Rate (APMHR): 145 bpm Target HR (85% APMHR): 123 bpm Max HR Achieved: 92 bpm % of APMHR: 63 Recovery HR: 79 bpm HR response to stress: Normal HR response to stress BP Resting BP Supine: 142/80 mmHg Max BP: 142/80 mmHg Recovery BP: 138/78 mmHg BP response to stress: Normal blood pressure response to stress. ECG Resting ECG: Sinus Rhythm Stress ECG: Sinus Rhythm ST Change: Upsloping ST depression Maximum ST Deviation: 0.7 mm Arrhythmia: None Recovery ECG: Sinus Rhythm Recovery Arrhythmia: None Clinical Reason for Termination: vs returned to baseline Stress Symptoms: Dyspnea Exercise duration: 6 min0 sec Exercise capacity: 1 METs Stress ECG Conclusion 1. Resting electrocardiogram showed LVH voltage, minor ST abnormalities 2. This was a pharmacologic myocardial perfusion imaging study. 3. Peak heart rate achieved was 63% of predicted for age. Blunted heart rate and blood pressure resp onse to pharmacologic stress 4. Electrocardiographically the test was nondiagnostic due to inadequate heart rate 5. There were no significant dysrhythmias MPI Conclusion Normal myocardial perfusion without evidence of ischemia or prior infarction Ejection fraction 64% Radiologist Interpretation Radiologist agrees with Manager Graphic's Interpretation. Radiologist Interpretation by: Eduardo Rider MD Interpretation Date/Time: 05/20/2020 14:43:35
[2020-05-13] MEDS: Regadenoson 0.4 MG/5 ML SYR IVP (10:36)
== END 2020-05-13 01:08 ==
PROVIDERS: PCP Family Medicine; Visit Provider Family Medicine
DX: R06.02 Shortness of breath (principal); R61 Generalized hyperhidrosis; R53.83 Other fatigue
CPT/HCPCS: 78452; 71046; 93017; J2785

== ENCOUNTER 2021-03-28 10:57 | Outpatient (CLI) | payer MEDICARE, OTHER, SELFPAY ==
--- NOTE | 2021-03-28 10:15 | DI.RAD_ITS ---
Exam(s) XR WRIST LT COMP NAVICULAR EXAM: XR WRIST LT COMP NAVICULAR CLINICAL HISTORY: eval L wrist pain, h/o surgery. TECHNIQUE: 2D digital imaging was performed. COMPARISON: No exams were available for comparison FINDINGS: A sideplate and screws are seen in the distal radius. No acute fracture or dislocation is seen. Mod erately severe degenerative changes are seen at the 1st CMC joint. The soft tissues are unremarkable . IMPRESSION: DATA REPOSITORY: RADIATION DOSE DELIVERED:
== END 2021-03-28 10:58 | disposition home or self-care (01) ==
LOC: DIORS 10:57
PROVIDERS: PCP Family Medicine; Referring Provider Family Medicine; Visit Provider Student in an Organized Health Care Education/Training Program
DX: M25.532 Pain in left wrist (principal); T84.84XA Pain due to internal orthopedic prosthetic devices, implants and grafts, initial encounter
CPT/HCPCS: 99213; 73110

== ENCOUNTER 2021-05-22 03:47 | Outpatient (CLI) | payer MEDICARE, OTHER, SELFPAY ==
[2021-05-22 12:13] LABS: Calculated LDL 88 mg/dL (<100); Cholesterol 173 mg/dL (<200); HDL Cholesterol 72 mg/dL (40-60); TSH (W/Ref FT4) 1.73 uIU/mL (0.36-3.74); Triglyceride 66 mg/dL (<150)
== END 2021-05-22 03:48 | disposition home or self-care (01) ==
LOC: LOS 03:47
PROVIDERS: PCP Nurse Practitioner; Visit Provider Nurse Practitioner
DX: E03.9 Hypothyroidism, unspecified (principal)
CPT/HCPCS: 36415; 80061; 84443

== ENCOUNTER 2021-06-27 03:58 | Outpatient (CLI) | payer MEDICARE, OTHER, SELFPAY ==
--- NOTE | 2021-06-27 07:15 | DI.MAMMO_ITS ---
Exam(s) MAMMO SCREENING EXAM: MAMMO SCREENING CLINICAL HISTORY: screening, Z12.39 TECHNIQUE: Mammograms were interpreted according to the usual protocol including computer analysis w [employer] CAD system, tomosynthesis and C-view imaging. COMPARISON: 2010 through 2018 FINDINGS: The breasts are composed of scattered fibroglandular densities, Breast Density category B. No suspicious masses or suspicious microcalcifications are seen. No skin thickening or abnormal axillary lymph nodes are seen. There has been no significant change from prior exams. IMPRESSION: BI-RADS Category 1, Negative mammogram Yearly screening mammography is recommended. Breast Density - Category B, scattered fibroglandular densities. A negative radiographic report should not delay biopsy if a dominant or clinically suspicious mass is present. Up to ten percent of cancers are not identified on mammography. A negative report may reinforce clinical impression. Adenosis and dense breasts may obscure an underlying neoplasm. False positive reports average 6 to 10%. Patient will receive a letter notifying them of these results.
--- NOTE | 2021-06-27 09:30 | DI.DEXA_ITS ---
Exam(s) XR DEXA BONE DENSITY W/WO BRIANA EXAM: XR DEXA BONE DENSITY W/WO BRIANA CLINICAL HISTORY: osteoporosis, M81.0 TECHNIQUE: COMPARISON: Comparison 10/17/2013. FINDINGS: Lateral Spine Image: Unremarkable. No compression deformities identified. Right hip: Total T-Score: -2.7. Total Z-Score: -0.9. T- and Z-scores: Findings consistent with osteoporosis. Lumbar Spine: Total T-Score: -3.0. This compares with -3.2 from 2013. Total Z-Score: -0.5. T- and Z-scores: Findings consistent with osteoporosis. IMPRESSION: Findings of osteoporosis in the right hip and lumbar spine.
== END 2021-06-27 04:18 ==
PROVIDERS: PCP Nurse Practitioner; Visit Provider Nurse Practitioner
DX: Z12.31 Encounter for screening mammogram for malignant neoplasm of breast (principal); M81.0 Age-related osteoporosis without current pathological fracture
CPT/HCPCS: 77063; 77067; 77080

== ENCOUNTER 2022-01-13 11:29 | Outpatient (REF) | payer MEDICARE, OTHER, SELFPAY | END 2022-01-13 11:30 | disposition home or self-care (01) | LOC: LBN 11:29 | PROVIDERS: PCP Nurse Practitioner; Visit Provider Internal Medicine Endocrinology, Diabetes & Metabolism ==

== ENCOUNTER 2022-01-19 15:51 | Outpatient (REF) | payer MEDICARE, OTHER, SELFPAY ==
[2022-01-20 12:27] LABS: Creatinine,Urine 16.34 mg/dL
[2022-01-20 12:30] LABS: Total Volume 4900 ml
[2022-01-21 08:41] LABS: Calcium Urine 9.3 mg/dL (See Note); Calcium Urine 24 hr 456 mg/24hrs (100-300); Timed Urine Volume 4900 mL
== END 2022-01-19 15:52 | disposition home or self-care (01) ==
LOC: LBN 15:51
PROVIDERS: PCP Nurse Practitioner; Visit Provider Internal Medicine Endocrinology, Diabetes & Metabolism
DX: M81.0 Age-related osteoporosis without current pathological fracture (principal)
CPT/HCPCS: 81050; 82340; 82570

== ENCOUNTER 2022-05-25 15:29 | Outpatient (CLI) | payer MEDICARE, OTHER, SELFPAY ==
[2022-05-25 17:25] LABS: TSH (W/Ref FT4) 1.41 uIU/mL (0.36-3.74)
== END 2022-05-25 15:30 | disposition home or self-care (01) ==
LOC: LBO 15:32
PROVIDERS: PCP Nurse Practitioner; Visit Provider Nurse Practitioner
DX: E03.9 Hypothyroidism, unspecified (principal)
CPT/HCPCS: 36415; 84443

== ENCOUNTER 2022-09-17 03:59 | Outpatient (CLI) | payer MEDICARE, OTHER, SELFPAY ==
[2022-09-17 13:05] LABS: Anion Gap 4.4 mmol/L (3-11); BUN 16 mg/dL (7-18); CO2 30.6 mmol/L (21.0-32.0); CREATININE 0.8 mg/dL (0.55-1.02); Calcium 9.1 mg/dL (8.5-10.1); Chloride 104 mmol/L (98-107); Estimated GFR 75.37 (mL/min/1.73m2); Glucose 97 mg/dL (74-106); Potassium 4.1 mmol/L (3.5-5.1); Sodium 139 mmol/L (136-145)
== END 2022-09-17 04:00 | disposition home or self-care (01) ==
LOC: LOS 03:59
PROVIDERS: PCP Nurse Practitioner Family; Visit Provider Internal Medicine Endocrinology, Diabetes & Metabolism
DX: M81.0 Age-related osteoporosis without current pathological fracture (principal)
CPT/HCPCS: 36415; 80048

== ENCOUNTER 2023-02-08 01:35 | Outpatient (CLI) | payer MEDICARE, OTHER, SELFPAY ==
[2023-02-08 14:04] LABS: BUN 15 mg/dL (7-18); CREATININE 0.7 mg/dL (0.55-1.02); Calcium 9.5 mg/dL (8.5-10.1); Estimated GFR 88.47 (mL/min/1.73m2)
== END 2023-02-08 01:36 | disposition home or self-care (01) ==
LOC: LBO 01:35
PROVIDERS: PCP Nurse Practitioner Family; Visit Provider Internal Medicine Endocrinology, Diabetes & Metabolism
DX: M81.0 Age-related osteoporosis without current pathological fracture (principal)
CPT/HCPCS: 36415; 84520; 82310; 82565

== ENCOUNTER 2023-05-11 03:35 | Outpatient (CLI) | payer MEDICARE, OTHER, SELFPAY ==
[2023-05-11 12:59] LABS: HCT 42.8 % (36.0-46.0); HGB 14.5 g/dL (11.2-15.7); MCH 31.8 pg (27.0-33.0); MCHC 33.9 % (32.0-36.0); MCV 94 fL (80-95); MPV 11.1 fL (8.0-11.0); Platelet Count 188 10^3/uL (130-400); RBC 4.56 10^6/uL (3.93-5.22); RDW 12.6 % (11.7-14.6); RDW-SD 43.4 fL; WBC 5.31 10^3/uL (4.4-10.8)
[2023-05-11 13:30] LABS: Anion Gap 8.1 mmol/L (3-11); BUN 12 mg/dL (7-18); CO2 29.9 mmol/L (21.0-32.0); CREATININE 0.7 mg/dL (0.55-1.02); Calcium 8.8 mg/dL (8.5-10.1); Calculated LDL 110 mg/dL (<100); Chloride 104 mmol/L (98-107); Cholesterol 202 mg/dL (<200); Estimated GFR 88.47 (mL/min/1.73m2); Glucose 95 mg/dL (74-106); HDL Cholesterol 86 mg/dL (40-60); Potassium 3.7 mmol/L (3.5-5.1); Sodium 142 mmol/L (136-145); TSH (W/Ref FT4) 0.57 uIU/mL (0.36-3.74); Triglyceride 31 mg/dL (<150)
== END 2023-05-11 03:36 | disposition home or self-care (01) ==
LOC: LBO 03:35
PROVIDERS: PCP Nurse Practitioner Family; Visit Provider Nurse Practitioner Family
DX: E03.9 Hypothyroidism, unspecified (principal); F32.9 Major depressive disorder, single episode, unspecified; M81.0 Age-related osteoporosis without current pathological fracture; R53.83 Other fatigue; R06.02 Shortness of breath; R79.89 Other specified abnormal findings of blood chemistry
CPT/HCPCS: 36415; 80048; 80061; 85027; 84443

== ENCOUNTER 2023-05-25 04:11 | Outpatient (CLI) | payer MEDICARE, OTHER, SELFPAY ==
[2023-05-25] MEDS: Albuterol HFA 18 GM 200 PUFF INH IH (09:21)
[2023-05-25] MEDS: Inhaler, Assist Device 1 EACH MC (09:21)
--- NOTE | 2023-05-25 10:24 | W.PFT ---
Date of service: 05/25/23 Time of Service: 08:01 Pulmonary Function Test Result Indications: Dyspnea Interpretation Spirometry: There is moderate airflow limitation. There is a significant bronchodilator response. Impression Moderate airflow obstruction with a bronchodilator response. Clinical Correlation therefore is recommended.
== END 2023-05-25 04:12 | disposition home or self-care (01) ==
LOC: RT 04:11
PROVIDERS: PCP Nurse Practitioner Family; Visit Provider Nurse Practitioner Family
DX: R06.00 Dyspnea, unspecified
CPT/HCPCS: 94060

== ENCOUNTER 2023-07-27 12:19 | Outpatient (CLI) | payer MEDICARE, OTHER, SELFPAY ==
--- NOTE | 2023-07-27 12:15 | RT.EKG_ITS ---
APPROVED REPORT Exam: Resting ECG Reason for Exam: palpatations Patient Location: O HR:77 bpm ECG Measurements Heart Rate 77 AXIS WV 128 P 81 QRSd 96 QRS 75 QT 370 T 45 QTc 419 Conclusion Sinus rhythm...normal P axis, V-rate 50- 99 Anteroseptal infarct, old...Q >40mS, V1-V2 Minimal ST depression, inferior leads...ST <-0.04mV, II III aVF
== END 2023-07-27 12:20 | disposition home or self-care (01) ==
LOC: DI.CM 12:21
PROVIDERS: PCP Nurse Practitioner Family; Visit Provider Nurse Practitioner Family
DX: R00.2 Palpitations (principal)
CPT/HCPCS: 93010

== ENCOUNTER 2023-07-27 12:53 | Emergency (ER) | payer MEDICARE, OTHER, SELFPAY ==
[2023-07-27] VITALS (19 sets, daily range): BP systolic 108–153; BP diastolic 53–85; PULSE 82–91; RESP 10–22; TEMP 36.6; O2SAT 87–99
--- NOTE | 2023-07-27 13:00 | DI.RAD_ITS ---
Exam(s) XR CHEST 2V PA LATERAL EXAM: XR CHEST 2V PA LATERAL CLINICAL HISTORY: Cough TECHNIQUE: 2D digital imaging was performed of the chest. Two images were obtained. PA and lateral views were obtained. COMPARISON: CR XR CHEST 1V IN DI DEPT from 09/15/2018 CR XR CHEST 2V PA LATERAL from 05/13/2020 FINDINGS: MEDIASTINUM: Normal. HEART: Normal. PULMONARY VASCULATURE: Normal. LUNGS: No focal consolidating infiltrates. There is a linear density to the left of the heart. This may represent a superimposition of shadows, a small focus of atelectasis or scarring or possible pul monary nodule. PLEURAL SPACE: No pleural effusion or pneumothorax. BONE:Within normal limits for the patient's age. There is an old mid thoracic compression deformity. OTHER FINDINGS:Normal. IMPRESSION: 1. No acute pulmonary findings. 2. Short density to the left of the heart on the AP view. This is nonspecific. A follow-up AP view of the chest is recommended in 1 month. If the finding persists, a CT scan of the chest may be obtai juan antonio for further evaluation. DATA REPOSITORY: RADIATION DOSE DELIVERED:
--- NOTE | 2023-07-27 13:00 | RT.EKG_ITS ---
APPROVED REPORT Exam: Resting ECG Reason for Exam: palpitations Patient Location: E HR:85 bpm ECG Measurements Heart Rate 85 AXIS VT 128 P 80 QRSd 62 QRS 75 QT 369 T 29 QTc 440 Conclusion Sinus rhythm...normal P axis, V-rate 60- 99 Atrial premature complexes...SV complexes w/ short R-R intvls I have reviewed and interpreted ECG and agree with software generated interpretation.
--- NOTE | 2023-07-27 13:22 | ED.GENADUL_ITS ---
Discharge Plan Disposition Patient Disposition: Home Discharge Details Clinical Impression: COPD exacerbation, Heart palpitations, Cough, Diffuse wheezing Primary Care Provider: Kym Dobbs ED Provider: Suresh Mathias Home Meds and New Rx's Prescriptions: New albuterol sulfate 90 mcg/actuation aerosol powdr breath activated 2 inh inhalation Q4H PRNQty: 1 0RF Rx Instructions: use 2 puffs every 4-6 hours as needed for cough, chest tightness or shortness of breath prednisone 20 mg tablet 40 mg PO DAILY 5 Days Qty: 10 0RF No Action Flaxseed 750 mg PO DAILY beta carotene 25,000 unit capsule 7,500 unit PO DAILY coenzyme Q10 100 mg capsule 200 mg PO DAILY turmeric 400 mg capsule PO DAILY pyridoxine (vitamin B6) [Vitamin B-6] 100 mg tablet 100 mg PO DAILY tetracycline 500 mg capsule 500 mg PO DAILY Qty: 90 4RF levothyroxine 50 mcg tablet 50 mcg PO DAILY Qty: 90 3RF venlafaxine 37.5 mg capsule,extended release 24hr 37.5 mg PO DAILY Qty: 90 3RF zoledronic [id number] [Reclast] 5 mg/100 mL piggyback IV multivitamin [Daily Multi-Vitamin] 1 EACH tablet 1 ea PO DAILY ascorbic acid (vitamin C) [Vitamin C] 1,000 MG tablet 1,000 mg PO DAILY zinc gluconate 50 MG tablet 50 mg PO DAILY green tea leaf extract 250 mg capsule 500 mg PO DAILY Rx Instructions: taking 315 mg pycnogenol 60 mg PO DAILY Rx Instructions: takes as a memory enhancer L-Lysine 500 MG capsule 500 mg PO DAILY vitamin E 400 UNIT capsule 400 unit PO HS Fish Oil 1 EACH capsule 2 cap DAILY Glucosamine Sulf-Chondroitin 1 EACH capsule 1 cap HS calcium carbonate-vitamin D3 [Calcium 600 + D(3)] 600 mg-10 mcg (400 unit) tablet 1 tab PO DAILY Rx Instructions: actually taking 1,450 by extension educator Discharge Instructions Instructions: COPD (Chronic Obstructive Pulmonary Disease) (ED) Additional Instructions: start using albuterol inhaler with spacer every 4 hours for the next 2 days and then use it as needed for coughing take the steroids for the next 5 days as prescribed you will get holter monitor and they will contact you if there are abnormalities of concern please follow up with your PCP this week for reevaluation of your symptoms and referral to pulmonology Discharge Orders Other Ambulatory Orders: Holter Monitor (Routine) Timeframe: 1 Week Facility: [facility] - Location: Respiratory Therapy Ordered By: Suresh Mathias Medical Decision Making Emergent evaluation of palpitations. Initial differential includes cardiac dysrhythmia, electrolyte derangement, pneumonia, malignancy. The patient is hemodynamically stable. She is not tachycardic. She is having occasional bigeminy. I reviewed her EKG at urgent care and in the emergency department and I do not appreciate acute ST segment changes concerning for acute coronary syndrome. There are no priors for comparison. The patient has been having URI symptoms including cough and has significantly abnormal breath sounds. She is not hypoxic. She reports that she had been told she needs to be referred for COPD treatment though does not currently take any medications for this. She has a remote history of smoking, not currently. We will check lab work, chest x-ray and continue telemetry monitoring 1350: Patient reevaluated. Has received a breathing treatment which has improved her aeration. She still has some occasional wheezing. She states that she does feel more comfortable taking a deep breath. she is noted to be very tearful and anxious. Lab work reviewed, her left eye is unremarkable. 1415: Lab work reviewed. Her white blood cell count is normal. Electrolytes are normal. Initial cardiac biomarkers are unremarkable. Her thyroid function is within normal limits as well. 1530: Patient is doing well. On reevaluation, her breath sounds are clear and equal bilaterally. She has been provided MDI teaching and a spacer. Will discharge with a 5-day course of steroids. Also provided albuterol. I have ordered an Holter monitor though this may need to be received through her PCP. Advise close follow-up with her PCP. Patient reports that she is feeling better enough to go home and would like to go home. All questions answered. Discharged in good condition. . Medical Records Medical records reviewed: Yes I reviewed the patient's medical records. Lab Data Lab results reviewed: Yes I reviewed the patient's lab results. ECG Data Attestation: I personally reviewed and interpreted this ECG (s) as follows: Prior ECG tracings: available for review Interpretation: Sinus 85, occasional PACs, nonspecific ST segment changes, no acute STEMI HPI General Date/Time Provider Initiated Documentation: 07/27/23 12:55 . Limitations to Documentation: no limitations . Information obtained by: patient . HPI Narrative: 77-year-old female with past medical history of hypothyroidism, depression presents for evaluation of palpitations. Patient saw her primary care provider today with concern for cough and palpitations. Primary care provider was concerned about an abnormal EKG so she was sent to the emergency department for further evaluation. Patient reports that she has been having productive cough for the last 3 days. She reports that she has some pain in her back when she coughs. She has been having palpitations starting today. Palpitations are intermittent. Not associated with chest pain. Not worsened with exertion. She states that she does not feel short of breath. Denies any nausea, vomiting, abdominal pain, changes in bowel or bladder. Related Data Home Medications Medication Instructions Recorded Confirmed glucosamine sulfate dipotassium Cl 1 cap HS 12/16/12 07/27/23 500 mg-chondroitin 400 mg capsule (Glucosamine Sulfate 2 KCL-Chondroitin) lysine 500 mg capsule (L-Lysine) 500 mg PO DAILY 12/16/12 07/27/23 omega-3 fatty acids-fish oil 340 2 cap DAILY 12/16/12 07/27/23 mg-1,000 mg capsule (Fish Oil) vitamin E 268 mg (400 unit) capsule 400 unit PO HS 12/16/12 07/27/23 ascorbic acid (vitamin C) 1,000 mg 1,000 mg PO DAILY 10/04/17 07/27/23 tablet (Vitamin C) multivitamin (Daily Multi-Vitamin 1 ea PO DAILY 10/04/17 07/27/23 tablet) zinc gluconate 50 mg tablet 50 mg PO DAILY 11/24/17 07/27/23 Flaxseed 750 mg PO DAILY 04/24/19 07/27/23 pyridoxine (vitamin B6) 100 mg 100 mg PO DAILY 05/08/21 07/27/23 tablet (Vitamin B-6) turmeric 400 mg capsule mg PO DAILY 05/08/21 05/17/23 beta carotene 7,500 mcg (25,000 7,500 unit PO DAILY 05/12/22 07/27/23 unit) capsule calcium carbonate 600 mg-vitamin 1 tab PO DAILY 05/12/22 07/27/23 D3 10 mcg (400 unit) tablet (Calcium 600 + D(3)) coenzyme Q10 100 mg capsule 200 mg PO DAILY 05/12/22 07/27/23 green tea leaf extract 250 mg 500 mg PO DAILY 05/12/22 07/27/23 capsule pycnogenol 60 mg PO DAILY 05/12/22 07/27/23 tetracycline 500 mg capsule 500 mg PO DAILY #90 caps 05/12/22 07/27/23 levothyroxine 50 mcg tablet 50 mcg PO DAILY #90 tabs 05/17/23 07/27/23 venlafaxine 37.5 mg 37.5 mg PO DAILY #90 caps 05/17/23 07/27/23 capsule,extended release 24 hr zoledronic acid 5 mg/100 mL in IV 05/17/23 05/17/23 mannitol 5 %-water intravenous piggybck (Reclast) albuterol sulfate 90 mcg/actuation 2 inh inhalation Q4H PRN #1 ea 07/27/23 breath activated powder inhaler prednisone 20 mg tablet 40 mg PO DAILY 5 days #10 tabs 07/27/23 Previous Rx's Medication Instructions Recorded tetracycline 500 mg capsule 500 mg PO DAILY #90 caps 05/12/22 levothyroxine 50 mcg tablet 50 mcg PO DAILY #90 tabs 05/17/23 venlafaxine 37.5 mg 37.5 mg PO DAILY #90 caps 05/17/23 capsule,extended release 24 hr albuterol sulfate 90 mcg/actuation 2 inh inhalation Q4H PRN #1 ea 07/27/23 breath activated powder inhaler prednisone 20 mg tablet 40 mg PO DAILY 5 days #10 tabs 07/27/23 Allergies Allergy/AdvReac Type Severity Reaction Status Date / Time doxycycline AdvReac Intermediate UPSET Verified 07/27/23 13:08 STOMACH PROCAINE AdvReac Intermediate TACHYCARDIA Uncoded 07/27/23 13:08 General Stated Complaint: Palpitatns YOBANY: 3 PFSH All Active Problems (Updated 07/27/23 @ 15:31 by Suresh Mathias MD) COPD exacerbation (Acute) Heart palpitations (Acute) Cough (Acute) Diffuse wheezing (Acute) Palpitations (Acute) Shortness of breath on exertion (Acute) Rosacea (Acute) Trigger finger of right hand (Acute) 4th finger Left wrist pain (Acute) carpal tunnel Depression (Chronic) Osteoporosis (Acute) 2021: Reclast at [facility] 2 x yearly Hypothyroidism (Acute 01/09/15) Generalized osteoarthrosis (Acute) Basal cell carcinoma of skin (Acute) neck [facility] derm yearly Actinic keratosis (Acute) Medical History Acne Cholelithiasis NOS COVID-19 04/06/22 Vaccinated Depression GERD (gastroesophageal reflux disease) (05/23/15) History of tobacco use Hypothyroidism On postmenopausal hormone replacement therapy Osteoporosis Painful orthopaedic hardware 2021- not painful at this time Personal history of colonic polyps Splenic artery aneurysm Surgical History Biopsy of breast (~1991) B/L Hx laparoscopic cholecystectomy (~04/2019) [facility] OOPHRECTOMY, U/L REPAIR LEFT PATELLA FRACTURE (12/03/15) LEFT/DR. WILLS S/P right oophorectomy (~04/2019) [facility] Family History Mother , 77 Depression Heart disease Father , 69 Essential hypertension Heart disease Hyperlipidemia Sister Essential hypertension Heart disease Sister Substance abuse Depression Brother Essential hypertension Heart disease Maternal Grandfather , 81 Stroke Paternal Grandfather , 93 Heart disease Stroke Maternal Grandmother , 83 Depression Heart disease Stroke Paternal Grandmother , 58 Heart disease Family History Messer's palsy Skin cancer Osteoporosis Arthritis Kidney stones Kidney disease Thyroid disorder Daughter Substance abuse Diabetes Depression Daughter Substance abuse Diabetes Depression Social History Smoking/Tobacco Use Status: Former Tobacco Use Quit Date: 10/18/83 Tobacco: How many years used: 20 Second Hand Exposure: Yes Smoking risk assessment performed?: Yes Alcohol Intake: former Drug use: Never Substance use type: does not use Counseling given: No Counseling provided: none Caregiver/Support person: No Household members: spouse Housing: house Communication Needs: Corrective Lenses Do you need help understanding health information?: Rarely Pets and animals: Yes Pets and animals: dog(s) Sexually active: Yes Do you think of yourself as: straight/heterosexual Current gender identity: female What is your relationship status?: How often do you talk on the phone with friends or family?: three or more times per week How often do you get together with friends or relatives?: twice per week How often do you attend catholic or yazdanism services?: 1-3 times per year Do you belong to any clubs or organized social groups?: yes Panel score (0-1 are the most socially isolated patients): 3 What type of physical activity do you participate in: regular exercise Duration: 45-60 minutes/day Frequency: 1-2 times per week Evelina/Catholic: Caodaism Special evelina needs: No (Prayer is important) Seatbelt use: always Helmet use: No Drive intox or ride w/intox inventory associate and driver: No Do you feel safe in your relationship?: Yes Exam Narrative Exam Narrative: Review of Systems: All systems reviewed & are unremarkable except as noted in HPI and below Exam: Const: Well-nourished, Well-developed, appearing stated age HEENT: NACT / Eyes: PERRL, no conjunctival injection, and symmetrical lids / EARS Atraumatic external nose and ears / MOUTH Moist MM / NECK: Symmetric, trachea midline, No thyromegaly / THROAT oropharynx clear CVS: Normal rate, brief runs of bigeminy noted. Peripheral pulses 2+ and equal in all extremities. Brisk capillary refill in all extremities. RESP: Unlabored respiratory effort, normal oxygen sat. Diffuse expiratory wheezing with crackles in the right lung base GI: Soft, Nontender/Nondistended, No hepatosplenomegaly. No guarding or rebound. MSK: Extremities w/o deformity or TTP, No cyanosis or clubbing, full range of motion Skin: Warm, Dry. No rashes or lesions. Neuro: manager park II-XII grossly intact. Sensation grossly intact, no focal neurologic deficits. Psych: (AAO) x3. Appropriate mood and affect Course Vital Signs Vital signs: Vital Signs Temperature 36.6 C 07/27/23 13:04 Pulse 84 07/27/23 13:04 Respiratory Rate 18 07/27/23 13:04 Blood Pressure 150/85 H 07/27/23 13:04 Pulse Oximetry 99 07/27/23 13:04 Temperature 36.6 C 07/27/23 13:04 Temperature Source Oral 07/27/23 13:04 Pulse 84 07/27/23 13:04 Respiratory Rate 18 07/27/23 13:04 Respiratory Effort Short of Breath 07/27/23 13:08 Blood Pressure 150/85 H 07/27/23 13:04 Blood Pressure Position Sitting 07/27/23 13:04 Pulse Oximetry 99 07/27/23 13:04 Oxygen Delivery Method Room Air 07/27/23 13:04 Oxygen Flow Rate 0 07/27/23 13:04
[2023-07-27] MEDS: Albuterol/Ipratropium 3 ML UPD VIAL UPD (13:25)
[2023-07-27 13:27] LABS: Abs Immature Grans 0.01 10^3/uL (0.0-0.06); Absolute Basophil Count 0.03 10^3/uL (0.0-0.2); Absolute Eosinophil Count 0.06 10^3/uL (0.0-0.7); Absolute Lymphocyte Count 0.87 10^3/uL (1.2-3.4); Absolute Monocyte Count 0.86 10^3/uL (0.1-0.8); Absolute Neutrophil Count 3.57 10^3/uL (1.2-6.7); Basophils % 0.6; Eosinophils % 1.1; HCT 46.1 % (36.0-46.0); HGB 15.5 g/dL (11.2-15.7); Immature Grans % 0.2; Lymphocytes % 16.1; MCH 31.3 pg (27.0-33.0); MCHC 33.6 % (32.0-36.0); MCV 93 fL (80-95); MPV 10.6 fL (8.0-11.0); Monocytes % 15.9; Neutrophils % 66.1; Platelet Count 184 10^3/uL (130-400); RBC 4.95 10^6/uL (3.93-5.22); RDW 12.9 % (11.7-14.6); RDW-SD 44.1 fL
[2023-07-27 13:53] LABS: ALT 22 U/L (14-59); AST 22 U/L (15-37); Albumin 3.4 g/dL (3.4-5.0); Alkaline Phosphatase 82 U/L (46-116); Anion Gap 8.2 mmol/L (3-11); BUN 19 mg/dL (7-18); Bilirubin, Total 0.2 mg/dL (0.2-1.0); CO2 30.8 mmol/L (21.0-32.0); CREATININE 0.7 mg/dL (0.55-1.02); Calcium 9.1 mg/dL (8.5-10.1); Chloride 102 mmol/L (98-107); Estimated GFR 88.47 (mL/min/1.73m2); Glucose 97 mg/dL (74-106); Magnesium 1.9 mg/dL (1.8-2.4); NT-proBNP 40 pg/mL (<300); Potassium 3.4 mmol/L (3.5-5.1); Sodium 141 mmol/L (136-145); TSH (W/Ref FT4) 2.46 uIU/mL (0.36-3.74); Total Protein 7.2 g/dL (6.4-8.2); Troponin I < 50 ng/L (<or=60)
[2023-07-27 14:13] LABS: COVID-19 PCR Negative (Negative); Influenza A PCR Negative (Negative); Influenza B PCR Negative (Negative); RSV PCR Negative (Negative)
[2023-07-27 14:16] LABS: Source Nasopharynx
[2023-07-27] MEDS: methylPREDNISolone SUCC 125 MG VIAL IVP (14:41)
== END 2023-07-27 15:47 | disposition home or self-care (01) ==
PROVIDERS: Emergency Provider Emergency Medicine; PCP Nurse Practitioner Family
DX: J44.1 Chronic obstructive pulmonary disease with (acute) exacerbation (principal); R00.2 Palpitations; R05.9 Cough, unspecified; R06.2 Wheezing
CPT/HCPCS: 80053; 87637; 93005; 94640; 99284; 71046; 83735; 83880; 84443; 84484; 85025; 93010; J2930; J7620

== ENCOUNTER 2023-08-05 09:10 | Outpatient (RCR) | payer MEDICARE, OTHER, SELFPAY ==
--- NOTE | 2023-08-05 09:00 | HOLTER_ITS ---
APPROVED REPORT Conclusion This is a 48-hour Holter monitor ordered for palpitations Rhythm throughout was sinus. Average heart rate was 77. Minimum was 65, maximum 109 There were very rare isolated atrial and ventricular ectopic beats There was no atrial fibrillation no SVT no high-grade AV block no pauses greater than 3 seconds Patient symptoms were reported which may have correlated with PVCs
== END 2023-08-17 23:59 | disposition home or self-care (01) ==
LOC: CARDOPNVT 09:10
PROVIDERS: PCP Nurse Practitioner Family; Visit Provider Nurse Practitioner Family
DX: R00.2 Palpitations (principal)
CPT/HCPCS: 93227; 93225; 93226

== ENCOUNTER → 2023-08-24 07:52 | Outpatient (BNVA) | payer MEDICARE, OTHER, SELFPAY | PROVIDERS: PCP Nurse Practitioner Family; Referring Provider Nurse Practitioner Family; Visit Provider Physician Assistant Surgical | DX: J44.9 Chronic obstructive pulmonary disease, unspecified (principal); Z79.899 Other long term (current) drug therapy; R93.89 Abnormal findings on diagnostic imaging of other specified body structures; Z87.891 Personal history of nicotine dependence | CPT/HCPCS: 94664; 99214 ==

== ENCOUNTER 2023-08-27 04:21 | Outpatient (CLI) | payer MEDICARE, OTHER, SELFPAY ==
[2023-08-27] MEDS: Levalbuterol HFA 15 GM INH 4 PUFF IH (14:51)
[2023-08-27] MEDS: Inhaler, Assist Device 1 EACH MC (14:52)
--- NOTE | 2023-08-30 12:57 | W.PFT ---
Date of service: 08/27/23 Time of Service: 12:58 Pulmonary Function Test Result Indications: COPD Interpretation Spirometry: There is moderate airflow limitation. No significant bronchodilator response. Lung Volumes: There is hyperinflation and air trapping Diffusion Capacity: Normal diffusion Airway Pressure: Increased airways resistance Impression Moderate airflow obstruction with air trapping increased airways resistance and a normal diffusion. This could represent uncontrolled asthma with airway remodelling, chronic bronchitis (COPD) or asthma-copd overlap syndrome. Clinical Correlation therefore is recommended.
== END 2023-08-27 04:22 | disposition home or self-care (01) ==
LOC: RT 04:21
PROVIDERS: PCP Nurse Practitioner Family; Visit Provider Physician Assistant Surgical
DX: J44.9 Chronic obstructive pulmonary disease, unspecified (principal)
CPT/HCPCS: 94060; 94726; 94729

== ENCOUNTER → 2023-09-02 03:20 | Outpatient (CLI) | payer MEDICARE, OTHER, SELFPAY ==
--- NOTE | 2023-09-02 08:30 | DI.CT_ITS ---
Exam(s) CT CHEST WO EXAM: CT CHEST WO CLINICAL HISTORY: follow up abnormal CXR,R93.89,SHORT DENSITY LT TO HEART TECHNIQUE: Imaging Protocol: Axial computed tomography images with coronal and sagittal reformatted images were created and reviewed CONTRAST MATERIAL: Intravenous: Omnipaque 350 Contrast volume:structured data ml. COMPARISON: CR CHEST 2 VIEWS PA,LAT from 11/14/2010 CR XR CHEST 2V PA LATERAL from 08/12/2018 CR XR CHEST 2V PA LATERAL from 05/13/2020 CR XR CHEST 2V PA LATERAL from 07/27/2023 FINDINGS: Pulmonary parenchyma: No consolidation. No dominant measurable mass. No pulmonary nodules. Minimal s carring in the inferomedial lingula, adjacent to the anterior heart border. Tracheobronchial tree: No bronchiectasis or mucous plugging. Mediastinum and Buffy: No dominant adenopathy or fluid collection. Calcified subcarinal lymph nodes ag ain noted. Pleura: No effusion. No pneumothorax. Heart: The heart is not dilated. Minimal coronary artery calcifications are seen. Aorta: Thoracic aorta non-dilated. Minimal atherosclerotic changes. Upper abdomen: Unremarkable. S/p cholecystectomy. 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 Stable appearance of left renal cyst. No follow-up recommended. Bones: Stable mild midthoracic compression fracture. Mild degenerative changes in the spine. Soft tissues: Unremarkable. IMPRESSION: Minimal scarring at anteromedial lingula. No suspicious abnormality. RADIATION DOSE DELIVERED: Total DLP DATA REPOSITORY: All CT scans at this facility are submitted to the National Radiology Data Registry (NRDR) Dose Index Registry (DIR) with the [employer] (ACR). RADIATION OPTIMIZATION: All CT scans at this facility use at least one of these dose optimization te chniques: automated exposure control; mA and/or kV adjustment per patient size (includes targeted exa ms where dose is matched to clinical indication); or iterative reconstruction.
== END ==
PROVIDERS: PCP Nurse Practitioner Family; Visit Provider Physician Assistant Surgical
DX: R93.89 Abnormal findings on diagnostic imaging of other specified body structures (principal)
CPT/HCPCS: 71250

== ENCOUNTER → 2023-12-07 13:02 | Outpatient (BNVA) | payer MEDICARE, OTHER, SELFPAY | PROVIDERS: PCP Nurse Practitioner Family; Referring Provider Nurse Practitioner Family; Visit Provider Student in an Organized Health Care Education/Training Program | DX: J44.9 Chronic obstructive pulmonary disease, unspecified (principal); Z87.891 Personal history of nicotine dependence | CPT/HCPCS: 99214 ==

== ENCOUNTER → 2024-01-18 14:16 | Outpatient (BNVA) | payer MEDICARE, OTHER, SELFPAY | PROVIDERS: PCP Nurse Practitioner Family; Referring Provider Nurse Practitioner Family; Visit Provider Student in an Organized Health Care Education/Training Program | DX: J44.9 Chronic obstructive pulmonary disease, unspecified (principal); Z87.891 Personal history of nicotine dependence | CPT/HCPCS: 99214 ==

== ENCOUNTER → 2024-07-17 10:59 | Outpatient (BNVA) | payer MEDICARE, OTHER, SELFPAY | PROVIDERS: PCP Nurse Practitioner Family; Referring Provider Nurse Practitioner Family; Visit Provider Physician Assistant Surgical | DX: J44.9 Chronic obstructive pulmonary disease, unspecified (principal); Z87.891 Personal history of nicotine dependence | CPT/HCPCS: 99214 ==

== ENCOUNTER 2024-09-27 02:58 | Outpatient (CLI) | payer MEDICARE, OTHER, SELFPAY ==
[2024-09-27 12:45] LABS: Anion Gap 8.4 mmol/L (3-11); BUN 17 mg/dL (7-18); CO2 28.6 mmol/L (21.0-32.0); Calcium 8.9 mg/dL (8.5-10.1); Calculated LDL 100 mg/dL (<100); Chloride 106 mmol/L (98-107); Cholesterol 202 mg/dL (<200); Estimated GFR 56.95 (mL/min/1.73m2); Glucose 79 mg/dL (74-106); HDL Cholesterol 96 mg/dL (40-60); Potassium 3.8 mmol/L (3.5-5.1); Sodium 143 mmol/L (136-145); TSH (W/Ref FT4) 2.34 uIU/mL (0.36-3.74); Triglyceride 30 mg/dL (<150)
== END 2024-09-27 02:59 | disposition home or self-care (01) ==
LOC: LOS 02:58
PROVIDERS: PCP Nurse Practitioner Family; Visit Provider Nurse Practitioner Family
DX: F32.9 Major depressive disorder, single episode, unspecified; E03.9 Hypothyroidism, unspecified; M81.0 Age-related osteoporosis without current pathological fracture; J44.9 Chronic obstructive pulmonary disease, unspecified
CPT/HCPCS: 36415; 80048; 80061; 84443

== ENCOUNTER 2024-11-06 13:56 | Outpatient (CLI) | payer MEDICARE, OTHER, SELFPAY ==
--- NOTE | 2024-11-06 09:30 | DI.RAD_ITS ---
Exam(s) XR HIP LT COMPLETE AP PELVIS EXAM: XR HIP LT COMPLETE AP PELVIS CLINICAL HISTORY: LEFT HIP PAIN S/P IM NAIL. TECHNIQUE: 2D digital imaging was performed. Two views. COMPARISON: CR XR HIP SINGLE W PELVIS from 10/24/2018 CR XR DEXA BONE DENSITY W/WO BRIANA from 06/27/2021 FINDINGS: BONES: No acute fracture is present. No bony destructive lesion is seen. Stable appearance of hardw are in the proximal left femur. No abnormal surrounding bony lucencies. JOINTS: No dislocation present. The SI joints and pubic symphysis show mild degenerative changes. Th e hip joint spaces are maintained. There is mild bilateral acetabular spurring. SOFT TISSUE: Heterotopic calcification at the left greater trochanter. IMPRESSION: Mild degenerative changes of both hips. Stable appearance of hardware in the left proximal femur. DATA REPOSITORY: RADIATION DOSE DELIVERED:
--- NOTE | 2024-11-06 10:00 | DI.RAD_ITS ---
Exam(s) XR KNEE LT 3V AP,LAT,KAYLA EXAM: XR KNEE LT 3V AP,LAT,KAYLA CLINICAL HISTORY: left knee pain. TECHNIQUE: 2D digital imaging was performed. Three views. COMPARISON: CR LEFT KNEE 4+ VIEWS from 11/30/2015 CR LEFT KNEE LIMITED 1 OR 2 VIEWS from 12/13/2015 CR Knee - 2 Views from 12/26/2015 CR LEFT KNEE LIMITED 1 OR 2 VIEWS from 01/21/2016 CR LEFT KNEE LIMITED 1 OR 2 VIEWS from 02/20/2016 CR LEFT KNEE 3 VIEW COMPLETE from 05/21/2016 FINDINGS: BONES: No acute fracture is present. No bony destructive lesion is seen. Two screws are again noted in the patella. There is fracture of the superior portion of the wire with displacement superiorly. JOINTS: The knee is normally aligned. The femoral tibial joint spaces are maintained. Narrowing of t he patellofemoral joint. SOFT TISSUE: Soft tissue swelling in the suprapatellar region. Question of joint effusion. IMPRESSION: Fracture of the superior portion of the cerclage wire with some superior displacement. Joint effusio n and soft tissue swelling. Findings could indicate injury to the quadriceps tendon. DATA REPOSITORY: RADIATION DOSE DELIVERED:
== END 2024-11-06 13:57 | disposition home or self-care (01) ==
LOC: DIORS 13:58
PROVIDERS: PCP Nurse Practitioner Family; Referring Provider Nurse Practitioner Family; Visit Provider Student in an Organized Health Care Education/Training Program
DX: M70.62 Trochanteric bursitis, left hip
CPT/HCPCS: 73562; 99214; 73502

== ENCOUNTER 2025-01-09 03:07 | Outpatient (CLI) | payer MEDICARE, OTHER, SELFPAY ==
[2025-01-09 13:08] LABS: BUN 17 mg/dL (7-18); CREATININE 0.8 mg/dL (0.55-1.02); Calcium 9.3 mg/dL (8.5-10.1); Estimated GFR 74.44 (mL/min/1.73m2)
== END 2025-01-09 03:08 | disposition home or self-care (01) ==
LOC: LOS 03:07
PROVIDERS: PCP Nurse Practitioner Family; Visit Provider Internal Medicine Endocrinology, Diabetes & Metabolism
DX: M81.0 Age-related osteoporosis without current pathological fracture (principal)
CPT/HCPCS: 36415; 84520; 82310; 82565

== ENCOUNTER → 2025-01-15 10:39 | Outpatient (BNVA) | payer MEDICARE, OTHER, SELFPAY | PROVIDERS: PCP Nurse Practitioner Family; Referring Provider Nurse Practitioner Family; Visit Provider Physician Assistant Surgical | DX: J44.9 Chronic obstructive pulmonary disease, unspecified (principal); Z87.891 Personal history of nicotine dependence | CPT/HCPCS: 99214 ==

== ENCOUNTER 2025-02-12 18:45 | Outpatient (REF) | payer MEDICARE, OTHER, SELFPAY ==
[2025-02-12 20:39] LABS: Creatinine,Urine 15.26 mg/dL
[2025-02-12 20:49] LABS: Creatinine,24hr Ur 0.75 g/24hr (0.60-1.80); Total Volume 4950 ml
[2025-02-14 10:35] LABS: Calcium Urine 12.3 mg/dL (See Note); Calcium Urine 24 hr 609 mg/24hr (100-300); Timed Urine Volume 4950 mL
== END 2025-02-12 18:46 | disposition home or self-care (01) ==
LOC: LBN 18:45
PROVIDERS: PCP Nurse Practitioner Family; Visit Provider Internal Medicine Endocrinology, Diabetes & Metabolism
DX: M81.0 Age-related osteoporosis without current pathological fracture (principal)
CPT/HCPCS: 81050; 82340; 82570

== ENCOUNTER 2025-03-06 01:11 | Outpatient (CLI) | payer MEDICARE, OTHER, SELFPAY ==
--- NOTE | 2025-03-06 11:15 | DI.US_ITS ---
Exam(s) US HERNIA EXAM: US HERNIA CLINICAL HISTORY: ? hernia to the right lower pelvs/groin, RT GROIN PAIN, R10.31. TECHNIQUE: Ultrasound was performed using standard protocol. FINDINGS: Sonographic assessment utilizing grayscale and color Doppler imaging was performed and targeted to th e area of clinical concern. There is a question of a small fatty hernia in the left lower quadrant measuring 1.4 x 0.6 cm. No a bnormalities seen in the right lower quadrant. IMPRESSION: Question of a small left lower quadrant fatty containing hernia. DATA REPOSITORY:
== END 2025-03-06 01:31 ==
LOC: DI 01:11
PROVIDERS: PCP Nurse Practitioner Family; Visit Provider Nurse Practitioner Family
DX: R10.31 Right lower quadrant pain (principal); R93.89 Abnormal findings on diagnostic imaging of other specified body structures
CPT/HCPCS: 76857

== ENCOUNTER 2025-05-15 20:04 | Emergency (ER) | payer MEDICARE, OTHER, SELFPAY ==
[2025-05-15 20:07] VITALS: BP 118/76; PULSE 79; RESP 14; TEMP 36.6; O2SAT 96
[2025-05-15] MEDS: Balanced Salt Solution 15 ML BTL OP (21:50)
[2025-05-15] MEDS: Fluorescein STRIPS 100/BOX 1 MG OP (21:51)
[2025-05-15] MEDS: Tetracaine 0.5% 4 ML BTL OP (21:51)
--- NOTE | 2025-05-15 22:25 | W.ED.GENAD ---
Discharge Plan Disposition Patient Disposition: Home Condition: Stable Discharge Details Clinical Impression: Injury of conjunctiva and corneal abrasion without foreign body, right eye, initial encounter Primary Care Provider: Kym Dobbs ED Provider: Raeann Hennessy Home Meds and New Rx's Prescriptions: Continued Flaxseed 750 mg PO DAILY beta carotene 25,000 unit capsule 7,500 unit PO DAILY coenzyme Q10 100 mg capsule 200 mg PO DAILY turmeric 400 mg capsule 1 mg PO DAILY pyridoxine (vitamin B6) [Vitamin B-6] 100 mg tablet 100 mg PO DAILY zoledronic [id number] [Reclast] 5 mg/100 mL piggyback IV multivitamin [Daily Multi-Vitamin] 1 EACH tablet 1 ea PO DAILY ascorbic acid (vitamin C) [Vitamin C] 1,000 MG tablet 1,000 mg PO DAILY green tea leaf extract 250 mg capsule 500 mg PO DAILY Rx Instructions: taking 315 mg pycnogenol 60 mg PO DAILY Rx Instructions: takes as a memory enhancer tetracycline 500 mg capsule 500 mg PO DAILY Qty: 90 4RF levothyroxine 50 mcg tablet 50 mcg PO DAILY Qty: 90 3RF venlafaxine 37.5 mg capsule,extended release 24hr 37.5 mg PO DAILY Qty: 90 3RF L-Lysine 500 MG capsule 500 mg PO DAILY vitamin E 400 UNIT capsule 400 unit PO HS Fish Oil 1 EACH capsule 2 cap PO DAILY Glucosamine Sulf-Chondroitin 1 EACH capsule 1 cap PO HS calcium carbonate-vitamin D3 [Calcium 600 + D(3)] 600 mg-10 mcg (400 unit) tablet 1 tab PO DAILY Rx Instructions: actually taking 1,450 by deputy director of finance albuterol sulfate 90 mcg/actuation aerosol powdr breath activated 2 inh inhalation Q4H PRNQty: 1 0RF Rx Instructions: use 2 puffs every 4-6 hours as needed for cough, chest tightness or shortness of breath No Action Stiolto Respimat 2.5-2.5 mcg/actuation mist 2 puff inhalation DAILY Qty: 4 12RF Discharge Instructions Instructions: Corneal Abrasion ED Additional Instructions: At this time no obvious foreign body was visualized on the exam, I do suspect that you have a corneal abrasion. Use the erythromycin ointment as directed 3 times daily for the next 5 to 7 days. Please follow-up with [facility] in the next 2 to 3 days. Return to the ER for any worsening pain, loss of vision, headache or concerns. Thank you for allowing us to care for you today. Referrals: [facility] [Outside] - 3 days Referral Note: ER follow-up, call for an appointment Clinical Impression: Injury of conjunctiva and corneal abrasion without foreign body, right eye, initial encounter Discharge Data Discharge Date/Time-TO BE ENTERED AT DEPARTURE: 05/15/25 22:57 HPI General Mode of arrival: ambulatory. Date/Time Provider Initiated Documentation: 05/15/25 20:16. Limitations to Documentation: no limitations. Information obtained by: patient, family, RN notes reviewed and old records reviewed. HPI Narrative: 79 year old female presents to the ER c/o right eye irritation and foreign body sensation which began this afternoon while outside working in the ER. She reports that it could be grass or twig. She states that she was cutting the grass. She attempted to irrigate it at home with little to no relief. Related Data Home Medications ?Medication ?Instructions ?Recorded ?Confirmed glucosamine sulfate dipotassium Cl 1 cap PO HS 12/16/12 05/15/25 500 mg-chondroitin 400 mg capsule (Glucosamine Sulfate 2 KCL-Chondroitin) lysine 500 mg capsule (L-Lysine) 500 mg PO DAILY 12/16/12 05/15/25 omega-3 fatty acids-fish oil 340 2 cap PO DAILY 12/16/12 05/15/25 mg-1,000 mg capsule (Fish Oil) vitamin E 268 mg (400 unit) capsule 400 unit PO HS 12/16/12 05/15/25 ascorbic acid (vitamin C) 1,000 mg 1,000 mg PO DAILY 10/04/17 05/15/25 tablet (Vitamin C) multivitamin (Daily Multi-Vitamin 1 ea PO DAILY 10/04/17 05/15/25 tablet) Flaxseed 750 mg PO DAILY 04/24/19 05/15/25 pyridoxine (vitamin B6) 100 mg 100 mg PO DAILY 05/08/21 05/15/25 tablet (Vitamin B-6) turmeric 400 mg capsule 1 mg PO DAILY 05/08/21 05/15/25 beta carotene 7,500 mcg (25,000 7,500 unit PO DAILY 05/12/22 05/15/25 unit) capsule calcium 600 mg (as 1 tab PO DAILY 05/12/22 05/15/25 carbonate)-vitamin D3 10 mcg (400 unit) tablet (Calcium 600 + D(3)) coenzyme Q10 100 mg capsule 200 mg PO DAILY 05/12/22 05/15/25 green tea leaf extract 250 mg 500 mg PO DAILY 05/12/22 05/15/25 capsule pycnogenol 60 mg PO DAILY 05/12/22 05/15/25 zoledronic acid 5 mg/100 mL in IV 05/17/23 02/22/25 mannitol 5 %-water intravenous piggybck (Reclast) albuterol sulfate 90 mcg/actuation 2 inh inhalation Q4H PRN #1 ea 07/27/23 05/15/25 breath activated powder inhaler tetracycline 500 mg capsule 500 mg PO DAILY #90 caps 09/26/24 05/15/25 levothyroxine 50 mcg tablet 50 mcg PO DAILY #90 tabs 10/23/24 05/15/25 venlafaxine 37.5 mg 37.5 mg PO DAILY #90 caps 10/23/24 05/15/25 capsule,extended release 24 hr tiotropium 2.5 mcg-olodaterol 2.5 2 puff inhalation DAILY #4 grams 05/16/25 mcg/actuation mist for inhalation (Stiolto Respimat) Previous Rx's ?Medication ?Instructions ?Recorded albuterol sulfate 90 mcg/actuation 2 inh inhalation Q4H PRN #1 ea 07/27/23 breath activated powder inhaler tetracycline 500 mg capsule 500 mg PO DAILY #90 caps 09/26/24 levothyroxine 50 mcg tablet 50 mcg PO DAILY #90 tabs 10/23/24 venlafaxine 37.5 mg 37.5 mg PO DAILY #90 caps 10/23/24 capsule,extended release 24 hr tiotropium 2.5 mcg-olodaterol 2.5 2 puff inhalation DAILY #4 grams 05/16/25 mcg/actuation mist for inhalation (Stiolto Respimat) Allergies Allergy/AdvReac Type Severity Reaction Status Date / Time doxycycline AdvReac Intermediate UPSET Verified 05/15/25 20:12 STOMACH PROCAINE AdvReac Intermediate TACHYCARDIA Uncoded 05/15/25 20:12 General Stated Complaint: EyeProblem YOBANY: 4 Review of Systems All systems reviewed & are unremarkable except as noted in HPI and below Constitutional Constitutional: Denies headache(s) Eyes Eyes: Reports as per HPI, Denies blind spots, Denies floaters, Reports irritation and Denies seeing flashes ENT Ears, Nose, Mouth, and Throat: Denies headache(s) Neurologic Neurologic: Denies headache(s) Exam Eyes General: appearance normal, both eyes and all related structures Alignment and Position: alignment normal Periorbital: periorbital findings normal Eyelids: eyelids normal Conjunctivae: conjunctival abnormality right conjunctival injection diffuse; without discharge and without subconjunctival hemmorhages Sclera: scleral abnormality right foreign body (No obvious foreign body visualized); without exudates and without hemorrhages Cornea: corneas abnormal on the right fluorescein used, abrasion linear and foreign body (Nonvisualized) Pupils: PERRL EOM: EOM intact bilaterally Direct ophthalmoscopy: normal light reflex Course Vital Signs Vital signs: Vital Signs Temperature 36.6 C 05/15/25 20:07 Pulse 79 05/15/25 20:07 Respiratory Rate 14 05/15/25 20:07 Blood Pressure 118/76 05/15/25 20:07 Pulse Oximetry 96 05/15/25 20:07 Temperature 36.6 C 05/15/25 20:07 Temperature Source Oral 05/15/25 20:07 Pulse 79 05/15/25 20:07 Respiratory Rate 14 05/15/25 20:07 Blood Pressure 118/76 05/15/25 20:07 Blood Pressure Position Sitting 05/15/25 20:07 Pulse Oximetry 96 05/15/25 20:07 Oxygen Delivery Method Room Air 05/15/25 20:07 Oxygen Flow Rate 0 05/15/25 20:07 Pain Level 4 05/15/25 20:07 Medical Decision Making 79 year old female presents to the ER c/o right eye irritation and foreign body sensation which began this afternoon while outside working in the ER. She reports that it could be grass or twig. She states that she was cutting the grass. She attempted to irrigate it at home with little to no relief. Denies any floaters, waves headache. She describes eye irritation. Marin lamp exam performed with tetracaine and fluorescein patient tolerated well. She does have a history of tachycardia with procaine but consents to the use of the tetracaine. I did discuss risks and benefits with her she verbalized understanding. No obvious foreign body visualized under Marin lamp exam, she does have small amount of corneal abrasion noted to the right outer canthus of her eye, she does have an injected cornea. No other uptake in dye. Will give erythromycin ointment and instruct to follow-up with [facility] in the next 2 to 3 days. She verbalized understanding and is in agreement with the plan. This text was generated using v[employer] dictation system, please disregard any oddities of phrase or misspellings. Quality:SDOH Health Related Social Needs: Health related social needs details NA PFS All Active Problems (Updated 05/15/25 @ 22:29 by Raeann Hennessy NP) Injury of conjunctiva and corneal abrasion without foreign body, right eye, initial encounter (Acute) Painful orthopaedic hardware (Acute) 2021- not painful at this time Trigger middle finger of right hand (Acute) DEPO MEDROL 11/06/24 Trochanteric bursitis of left hip (Acute) COPD (chronic obstructive pulmonary disease) (Chronic) Former smoker (Acute) Palpitations (Acute) Shortness of breath on exertion (Acute) Rosacea (Acute) Trigger finger of right hand (Acute) 4th finger Left wrist pain (Acute) carpal tunnel Depression (Chronic) Osteoporosis (Acute) 2021: Reclast at [facility] 2 x yearly Hypothyroidism (Acute 01/09/15) Generalized osteoarthrosis (Acute) Basal cell carcinoma of skin (Acute) neck [facility] derm yearly Actinic keratosis (Acute) Medical History (Updated 05/15/25 @ 22:29 by Raeann Hennessy NP) Abnormal CXR COVID-19 04/06/22 Vaccinated On postmenopausal hormone replacement therapy Splenic artery aneurysm Cholelithiasis NOS Personal history of colonic polyps History of tobacco use GERD (gastroesophageal reflux disease) (05/23/15) Acne Osteoporosis Depression Hypothyroidism Surgical History Hx laparoscopic cholecystectomy (~04/2019) [facility] S/P right oophorectomy (~04/2019) [facility] REPAIR LEFT PATELLA FRACTURE (12/03/15) LEFT/DR. WILLS OOPHRECTOMY, U/L Biopsy of breast (~1991) B/L Family History Mother , 77 Depression Heart disease Father , 69 Essential hypertension Heart disease Hyperlipidemia Sister Essential hypertension Heart disease Sister Substance abuse Depression Brother Essential hypertension Heart disease Maternal Grandfather , 81 Stroke Paternal Grandfather , 93 Heart disease Stroke Maternal Grandmother , 83 Depression Heart disease Stroke Paternal Grandmother , 58 Heart disease Family History Messer's palsy Skin cancer Osteoporosis Arthritis Kidney stones Kidney disease Thyroid disorder Daughter Substance abuse Diabetes Depression Daughter Substance abuse Diabetes Depression Social History (Updated 05/26/24 @ 13:42 by Terra Cotto) Smoking/Tobacco Use Status: Former Tobacco Use Quit Date: 10/18/83 Tobacco: How many years used: 20 Second Hand Exposure: Yes Smoking risk assessment performed?: Yes Alcohol Intake: former Drug use: Never Substance use type: does not use Counseling given: No Counseling provided: none Adopted: No Caregiver/Support person: No Household members: spouse Housing: house Number of Children: 2 number of grandchildren: 3 Communication Needs: Corrective Lenses Education Level: college Details: BS Do you need help understanding health information?: Rarely current occupation: House Pets and animals: Yes Pets and animals: dog(s) Sexually active: No Do you think of yourself as: straight/heterosexual Current gender identity: female What is your relationship status?: How often do you talk on the phone with friends or family?: three or more times per week How often do you get together with friends or relatives?: three or more times per week How often do you attend baptism or jainism services?: 1-3 times per year Do you belong to any clubs or organized social groups?: no Panel score (0-1 are the most socially isolated patients): 2 What type of physical activity do you participate in: other Details: [facility] wellness program, physical therapy Duration: 45-60 minutes/day Frequency: 1-2 times per week Evelina/Holiness: Taoist Special evelina needs: No (Prayer is important) Seatbelt use: always Helmet use: No (NA) Drive intox or ride w/intox funeral car driver: No Firearms in home: Yes Do you feel safe at home: Yes Do you feel safe in your relationship?: Yes Would you like helpful sources: No
[2025-05-15] MEDS: Erythromycin Ophth Oint 3.5 GM TUBE OD (22:41)
== END 2025-05-15 22:57 | disposition home or self-care (01) ==
PROVIDERS: Emergency Provider Registered Nurse Emergency; PCP Nurse Practitioner Family
DX: S05.01XA Injury of conjunctiva and corneal abrasion without foreign body, right eye, initial encounter (principal); Z87.891 Personal history of nicotine dependence; X58.XXXA Exposure to other specified factors, initial encounter
CPT/HCPCS: 99283

== ENCOUNTER 2025-08-01 10:30 | Outpatient (CLI) | payer MEDICARE, OTHER, SELFPAY ==
[2025-08-01 10:55] LABS: Hemoglobin A1C 5.8 % (<5.7)
[2025-08-01 11:56] LABS: ALT 27 U/L (14-59); AST 14 U/L (15-37); Albumin 3.6 g/dL (3.4-5.0); Alkaline Phosphatase 71 U/L (46-116); Anion Gap 8.1 mmol/L (3-11); BUN 16 mg/dL (7-18); Bilirubin, Total 0.5 mg/dL (0.2-1.0); CO2 29.9 mmol/L (21.0-32.0); Calcium 9.0 mg/dL (8.5-10.1); Calculated LDL 99 mg/dL (<100); Chloride 103 mmol/L (98-107); Cholesterol 195 mg/dL (<200); Estimated GFR 90.68 (mL/min/1.73m2); Glucose 86 mg/dL (74-106); HDL Cholesterol 90 mg/dL (>or=50); Potassium 3.8 mmol/L (3.5-5.1); Sodium 141 mmol/L (136-145); TSH (W/Ref FT4) 2.08 uIU/mL (0.36-3.74); Total Protein 6.9 g/dL (6.4-8.2); Triglyceride 32 mg/dL (<150)
== END 2025-08-01 10:31 | disposition home or self-care (01) ==
LOC: LBO 10:31
PROVIDERS: PCP Nurse Practitioner Family; Visit Provider Nurse Practitioner Family
DX: R73.01 Impaired fasting glucose (principal); E03.9 Hypothyroidism, unspecified; M81.0 Age-related osteoporosis without current pathological fracture; J44.9 Chronic obstructive pulmonary disease, unspecified; K21.9 Gastro-esophageal reflux disease without esophagitis
CPT/HCPCS: 36415; 80053; 80061; 83036; 84443